=== PATIENT | male | born 1960 | race Caucasian/White ===

== ENCOUNTER 2017-06-08 11:27 | Inpatient (IN) | payer MEDICARE, MEDICAID ==
--- NOTE | 2017-06-08 11:52 | ED Physician Chart ---
ED Chief Complaint/HPI - Patient Information Date Seen:: 06/08/17 Time Seen:: 11:47 Chief Complaint:: Agitation and aggressiveness History of Present Illness:: 57 yo male was brought by ambulance from [facility] to ER for evaluation of increased agitation and aggressiveness towards staff. The patient was noticed to have stage II sacral ulcer. Allergies:: Allergies Allergy/AdvReac Type Severity Reaction Status Date / Time No Known Allergies Allergy Verified 06/08/17 11:42 Vitals:: Vital Signs - 8 hr 06/08/17 11:42 Temp 97.0 F HR 65 RR 18 BP 96/67 O2 Sat % 97 ED Review of Systems - Review of Systems General/Constitutional: No fever Skin: Skin lesions Head: No headache Eyes: No pain ENT: No sore throat Neck: No neck pain Cardio Vascular: No chest pain Pulmonary: No SOB GI: No nausea, No vomiting Musculoskeletal: No bone or joint pain Psychiatric: Prior psych history ED Past Medical History - Past Medical History Past Medical History: Seizures, Other (dysphagia, anemia) Social History: Non Smoker, No Alcohol, No Drug Use Surgical History: PEG/GTube Psychiatricy History: Schizophrenia, Other (Psychosis) Family Medical History - Family Member Mother History Unknown: Yes ED Physical Exam - Physical Examination General/Constitutional: Awake Head: Atraumatic Eyes: PERRL Skin: No ecchymosis ENMT: Nasal exam nl Neck: No nuchal rigidity Respiratory: No Wheeze/Rhonchi/Rales Cardio Vascular: RRR, No murmur, gallop, rubs, NL S1 S2 GI: No tenderness/rebounding/guarding Extremities: normal strength in all extremities Neuro/Psych: No focal deficits Other Neuro/Psych comments:: oriented to self, follows command ED Assessment - Assessment General Assessment: Psychosis Leukopenia Assessment/Comments:: CBC, CMP, UA CXR, EKG Rocephin 1g IM Ativan 1mg IM x 2 Cleared for geropsych admit ED Septic Shock - . Is Septic Shock (SBP<90, OR Lactate>4 mmol\L) present?: No - <6hrs of presentation: Vital Signs: Vital Signs - 8 hr 06/08/17 11:42 Temp 97.0 F HR 65 RR 18 BP 96/67 O2 Sat % 97 ED Reassessment (Disposition) - Reassessment Reassessment Condition:: Unchanged - Patient Disposition Discharge/Transfer:: Geropsycho w/in this hosp Admitting Medical Physician:: Michaelle Mccormack Admitting Psych Physician:: Bro Rosa ED Discharge Plan - Patient Disposition
[2017-06-08 12:21] LABS: % EOSINOPHILS 2.3 % (0.0-5.0); % MONOCYTES 7.9 % (2.0-10.0); EOSINOPHILE ABSOLUTE 0.1 Th/cmm (0.1-0.4); LYMPHOCYTE ABSOLUTE 2.1 Th/cmm (1.5-3.0); MONOCYTE ABSOLUTE 0.3 Th/cmm (0.3-1.0); NEUTROPHILE ABSOLUTE 1.4 Th/cmm (1.8-8.0)
[2017-06-08 12:28] LABS: % BASOPHILS 1.5 % (0.0-2.0); % LYMPHOCYTES 53.3 % (20.0-50.0); BASOPHILE ABSOLUTE 0.1 Th/cumm (0-0.2); HEMATOCRIT 36.6 % (41.0-60); HEMOGLOBIN 12.4 gm/dL (12-16); MEAN CELL VOLUME 94.1 fl (80-99); MEAN CORPUSCULAR HEMOGLOBIN 31.8 pg (26.0-30.0); MEAN CORPUSCULAR HGB CONC 33.8 pg (28.0-36.0); MEAN PLATELET VOLUME 7.8 fl; PLATELET COUNT 234 Th/cmm (150-400); RED BLOOD COUNT 3.89 Mil/cmm (4.30-5.70); RED CELL DISTRIBUTION WIDTH 13.2 % (11.5-20.0)
[2017-06-08 12:36] LABS: URINE MICROSCOPIC INDICATED? YES; URINE SOURCE RANDOM
[2017-06-08 12:37] LABS: URINE BILIRUBIN NEGATIVE (NEGATIVE); URINE BLOOD NEGATIVE (NEGATIVE); URINE GLUCOSE (UA) NEGATIVE (NEGATIVE); URINE KETONE NEGATIVE (NEGATIVE); URINE LEUKOCYTE ESTERASE NEGATIVE (NEGATIVE); URINE NITRATE NEGATIVE (NEGATIVE); URINE PROTEIN NEGATIVE (NEGATIVE); URINE UROBILINOGEN 0.2 E.U./dL (0.2 - 1.0)
[2017-06-08 12:37] LABS: ALB/GLOB RATIO 1.2 (1.0-1.8); ALBUMIN 3.7 gm/dL (4.2-5.5); ALKALINE PHOSPHATASE 70 U/L (34-104); ANION GAP 9.5 (7.0-16.0); BILIRUBIN,TOTAL 0.4 mg/dL (0.3-1.0); BUN - UREA NITROGEN 7 mg/dL (7-25); CALCIUM SERUM 9.3 mg/dL (8.6-10.3); CARBON DIOXIDE 29.4 mEq/L (21.0-31.0); CHLORIDE 103 mEq/L (98-107); CREATININE - SERUM 0.5 mg/dL (0.7-1.3); GFR AFRICAN-AMERICAN > 60.0 ml/min (>90); GFR NON AFRICAN-AMERICAN > 60.0 ml/min; GLUCOSE 82 mg/dL (70-105); PHENYTOIN 3.1 ug/ml (10.0-20.0); POTASSIUM SERUM 3.9 mEq/L (3.5-5.1); SGOT 27 U/L (13-39); SGPT/ALT 20 U/L (7-52); SODIUM SERUM 138 mEq/L (136-145); TOTAL PROTEIN,SERUM 6.7 gm/dL (6.0-8.3)
[2017-06-08 12:45] LABS: URINE CLARITY CLEAR (CLEAR); URINE COLOR YELLOW
[2017-06-08 12:47] LABS: URINE BACTERIA OCCASIONAL /hpf (NONE SEEN); URINE EPITHELIAL CELLS OCCASIONAL /lpf (FEW); URINE WBC 0-2 /hpf (0-5)
[2017-06-08] MEDS ORDERED: Maalox 30 mL Cup PO PRN (16:01)
[2017-06-08] MEDS ORDERED: Magnesium Hydroxide (MOM) 30 mL UDC PO PRN (16:01)
[2017-06-08 22:57] VITALS: BP 113/68
--- NOTE | 2017-06-09 07:41 | Diagnostic Imaging Report ---
Chest x-ray single view History: Shortness of breath The heart size is normal. No focal pulmonary parenchymal processes. No hilar or mediastinal abnormalities. Impression: No acute abnormalities
[2017-06-09] MEDS ORDERED: Hydrocodone/APAP 5mg/325mg Tab GT PRN (08:59)
[2017-06-09] MEDS ORDERED: Fleet Enema 135 mL RC PRN (08:59)
[2017-06-09] MEDS ORDERED: Magnesium Hydroxide (MOM) 30 mL UDC GT PRN (08:59)
[2017-06-09] MEDS ORDERED: Acetaminophen 500 MG TAB GT PRN (08:59)
[2017-06-09] MEDS: Multivitamin Tab PO SCH (12:00)
[2017-06-09] MEDS: Pantoprazole 40 mg EC Tab PO SCH (12:00)
[2017-06-09] MEDS ORDERED: Haloperidol Lactate 5 mg/mL 1mL Vial ONE (18:26)
[2017-06-09] MEDS ORDERED: Haloperidol Lactate 5 mg/mL 1mL Vial IM ONE (18:26)
[2017-06-09] MEDS: OLANZapine 5 mg Oral Disintegrating Tab GT SCH (21:54)
--- NOTE | 2017-06-10 00:20 | History & Physical ---
ADMIT DATE: 06/08/2017 HISTORY OF PRESENT ILLNESS: A 57-year-old male patient came to the Emergency Room ____ for evaluation of Geropsych problem and very aggressive behavior. The patient is known to have history of hypertension and history of sacral ulcer x 2. OBJECTIVE: GENERAL: The patient was alert, oriented. LUNGS: Clear. CARDIOVASCULAR SYSTEM: S1, S2 heard. ABDOMEN: Soft. Bowel sounds are heard. CENTRAL NERVOUS SYSTEM: Grossly normal. DIAGNOSES: Psychosis, history of hyperlipidemia, history of hypertension, has leukopenia. PLAN: The patient is being admitted and will follow along with the Geropsychiatrist. JOB# [id number]
--- NOTE | 2017-06-10 08:12 | Psychosocial Evaluation ---
DATE OF SERVICE: 06/09/2017 JUSTIFICATION FOR HOSPITALIZATION: Brought in due to agitation and violent behaviors. HISTORY OF PRESENT ILLNESS: A 57-year-old male brought in by ambulance from a correction facility increased agitation and aggressive behaviors towards staff, unruly, confused, does not know where he is, states the year is 2006, not sure about the month. Per collateral the daughter specifically recent release from [facility]. History of violence. The patient nonsensical on exam, mumbling in a Lesvia chair. PAST PSYCHIATRIC HISTORY: Details unclear, but it appears that he has been aggressive. MEDICAL: Please see full H and P. SOCIAL HISTORY: States he was born in [place], states he has been twice and has 4 kids. Unclear drugs, alcohol or tobacco. The patient is not the best historian. MENTAL STATUS EXAMINATION: Stated age, some mumbling, confused, disoriented, mumbling to self, seems to be responding. Insight and judgment diminished. Poor impulse control. PROVISIONAL DIAGNOSES: Mood unspecified psychosis, unspecified. MEDICAL: Please see full H and P. ESTIMATED LENGTH OF STAY: 5-7 days. ASSESSMENT: The patient requiring inpatient hospitalization, aggressive, agitated, combative, not safe for a lower level of care. Apparently, he does not have a place to live. CONDITIONS FOR DISCHARGE: Improved mood, improved affect, better control of his agitation. JOB# [id number]
[2017-06-10] MEDS: Multivitamin Tab PO SCH (08:37)
[2017-06-10] MEDS: Pantoprazole 40 mg EC Tab PO SCH (08:37)
[2017-06-10] MEDS: OLANZapine 5 mg Oral Disintegrating Tab GT SCH ×3 (08:37→21:23)
[2017-06-10] MEDS: Multivitamin w/ Minerals Tab GT SCH (08:38)
--- NOTE | 2017-06-10 11:49 | Internal Medicine Prog Note ---
Internal Medicine Subjective - Subjective Service Date: 06/10/17 Patient seen and examined:: with staff Patient is:: awake, verbal Per staff patient has:: tolerating meds Internal Medicine Objective - Results Result Diagrams: 06/08/17 12:12 06/08/17 12:12 Recent Labs: Laboratory Last Values WBC 4.0 Th/cmm (4.8-10.8) L 06/08/17 12:12 RBC 3.89 Mil/cmm (4.30-5.70) L 06/08/17 12:12 Hgb 12.4 gm/dL (12-16) 06/08/17 12:12 Hct 36.6 % (41.0-60) L 06/08/17 12:12 MCV 94.1 fl (80-99) 06/08/17 12:12 MCH 31.8 pg (26.0-30.0) H 06/08/17 12:12 MCHC Differential 33.8 pg (28.0-36.0) 06/08/17 12:12 RDW 13.2 % (11.5-20.0) 06/08/17 12:12 Plt Count 234 Th/cmm (150-400) 06/08/17 12:12 MPV 7.8 fl 06/08/17 12:12 Neutrophils % 35.0 % (40.0-80.0) L 06/08/17 12:12 Lymphocytes % 53.3 % (20.0-50.0) H 06/08/17 12:12 Monocytes % 7.9 % (2.0-10.0) 06/08/17 12:12 Eosinophils % 2.3 % (0.0-5.0) 06/08/17 12:12 Basophils % 1.5 % (0.0-2.0) 06/08/17 12:12 Sodium 138 mEq/L (136-145) 06/08/17 12:12 Potassium 3.9 mEq/L (3.5-5.1) 06/08/17 12:12 Chloride 103 mEq/L (98-107) 06/08/17 12:12 Carbon Dioxide 29.4 mEq/L (21.0-31.0) 06/08/17 12:12 Anion Gap 9.5 (7.0-16.0) 06/08/17 12:12 BUN 7 mg/dL (7-25) 06/08/17 12:12 Creatinine 0.5 mg/dL (0.7-1.3) L 06/08/17 12:12 Est GFR ( Amer) > 60.0 ml/min (>90) 06/08/17 12:12 Est GFR (Non-Af Amer) > 60.0 ml/min 06/08/17 12:12 BUN/Creatinine Ratio 14.0 06/08/17 12:12 Glucose 82 mg/dL (70-105) 06/08/17 12:12 Whole Bld Lactic Acid 1.02 mmol/L (0.60-1.99) 06/08/17 12:12 Calcium 9.3 mg/dL (8.6-10.3) 06/08/17 12:12 Total Bilirubin 0.4 mg/dL (0.3-1.0) 06/08/17 12:12 AST 27 U/L (13-39) 06/08/17 12:12 ALT 20 U/L (7-52) 06/08/17 12:12 Alkaline Phosphatase 70 U/L (34-104) 06/08/17 12:12 Total Protein 6.7 gm/dL (6.0-8.3) 06/08/17 12:12 Albumin 3.7 gm/dL (4.2-5.5) L 06/08/17 12:12 Globulin 3.0 gm/dL 06/08/17 12:12 Albumin/Globulin Ratio 1.2 (1.0-1.8) 06/08/17 12:12 TSH 1.35 uIU/ml (0.34-5.60) 06/08/17 12:12 Urine Source RANDOM 06/08/17 12:30 Urine Color YELLOW 06/08/17 12:30 Urine Clarity CLEAR (CLEAR) 06/08/17 12:30 Urine pH 7.0 (4.6 - 8.0) 06/08/17 12:30 Ur Specific [place] 1.010 (1.005-1.030) 06/08/17 12:30 Urine Protein NEGATIVE mg/dL (NEGATIVE) 06/08/17 12:30 Urine Glucose (UA) NEGATIVE mg/dL (NEGATIVE) 06/08/17 12:30 Urine Ketones NEGATIVE mg/dL (NEGATIVE) 06/08/17 12:30 Urine Blood NEGATIVE (NEGATIVE) 06/08/17 12:30 Urine Nitrate NEGATIVE (NEGATIVE) 06/08/17 12:30 Urine Bilirubin NEGATIVE (NEGATIVE) 06/08/17 12:30 Urine Urobilinogen 0.2 E.U./dL (0.2 - 1.0) 06/08/17 12:30 Ur Leukocyte Esterase NEGATIVE (NEGATIVE) 06/08/17 12:30 Urine WBC 0-2 /hpf (0-5) 06/08/17 12:30 Ur Epithelial Cells OCCASIONAL /lpf (FEW) 06/08/17 12:30 Urine Bacteria OCCASIONAL /hpf (NONE SEEN) 06/08/17 12:30 Phenytoin 3.1 ug/ml (10.0-20.0) L 06/08/17 12:12 Valproic Acid 48.4 ug/mL (50.0-100.0) L 06/08/17 12:12 - Physical Exam Vitals and I&O: Vital Signs Temp 97.8 F 06/10/17 06:43 Pulse 102 06/10/17 06:43 Resp 20 06/10/17 06:43 BP 108/72 06/10/17 06:43 Pulse Ox 98 06/10/17 06:43 Intake & Output 06/09/17 06/10/17 06/10/17 18:59 06:59 18:59 Intake Total 120 375 Balance 120 375 Weight (lbs) 150 lb Intake: Oral 120 Other 375 Other: # Voids 3 # Bowel Movements 1 Active Medications: Current Medications Acetaminophen (Tylenol) 650 mg PO Q4HR PRN PRN Reason: Mild Pain / Temp above 100 Stop: 08/07/17 16:00 Acetaminophen (Tylenol 650mg/20.3ml Suspension) 650 mg GT Q4HR PRN PRN Reason: Mild Pain or Fever >101 Stop: 08/08/17 08:58 Acetaminophen (Tylenol Extra Strength) 1,000 mg GT Q4H PRN PRN Reason: Pain (Moderate) Stop: 08/08/17 08:58 Acetaminophen/Hydrocodone Bitart ([place] 5mg/325mg) 1 tab GT Q4H PRN PRN Reason: Pain (Severe) Stop: 08/08/17 08:58 Al Hydrox/Mg Hydrox/Simethicone (Maalox) 30 ml PO Q4HR PRN PRN Reason: GI DISTRESS Stop: 08/07/17 16:00 Bisacodyl (Dulcolax 10 Mg Supp) 10 mg RC DAILY PRN PRN Reason: Constipation Stop: 08/08/17 08:58 Docusate Sodium (Colace) 100 mg PO BID YULISSA Stop: 08/08/17 16:59 Last Admin: 06/10/17 08:38 Dose: 100 mg Folic Acid (Folate) 1 mg GT DAILY YULISSA Stop: 08/08/17 11:59 Last Admin: 06/10/17 08:37 Dose: 1 mg Lacosamide (Vimpat) 100 mg GT BID YULISSA Stop: 08/08/17 11:59 Last Admin: 06/10/17 08:37 Dose: 100 mg Levetiracetam (Keppra) 500 mg PO BID YULISSA Stop: 08/08/17 11:59 Last Admin: 06/10/17 08:37 Dose: 500 mg Lorazepam (Ativan) 0.5 mg PO Q4HR PRN; Protocol PRN Reason: Agitation Stop: 07/08/17 16:00 Lorazepam (Ativan) 1 mg GT Q4H PRN; Protocol PRN Reason: Anxiety Stop: 08/09/17 10:16 Last Admin: 06/10/17 11:05 Dose: 1 mg Magnesium Hydroxide (Milk Of Magnesia) 30 ml PO HS PRN PRN Reason: Constipation Magnesium Hydroxide (Milk Of Magnesia) 30 ml GT DAILY PRN PRN Reason: IF COLACE INEFFECTIVE Stop: 08/08/17 08:58 Multivitamins/Vitamin C (Theragran) 1 tab PO DAILY YULISSA Stop: 08/08/17 08:59 Last Admin: 06/10/17 08:37 Dose: 1 tab Mupirocin (Bactroban Oint) 1 appl NS BID [facility] Stop: 06/14/17 17:01 Last Admin: 06/10/17 08:38 Dose: 1 appl Olanzapine (Zyprexa Zydis) 5 mg GT TID YULISSA PRN Reason: Protocol Stop: 08/08/17 08:59 Last Admin: 06/10/17 08:37 Dose: 5 mg Pantoprazole Sodium (Protonix) 40 mg PO DAILY YULISSA Stop: 08/08/17 11:59 Last Admin: 06/10/17 08:37 Dose: 40 mg Phenytoin (Dilantin) 100 mg GT TID YULISSA Stop: 08/08/17 13:59 Last Admin: 06/10/17 08:37 Dose: 100 mg Sodium Phosphate (Fleet Enema) 135 ml RC Q48H PRN PRN Reason: IF MOM INEFFECTIVE Stop: 08/08/17 08:58 Thiamine HCl (Vitamin B1) 100 mg GT DAILY YULISSA Stop: 08/08/17 11:59 Last Admin: 06/10/17 08:37 Dose: 100 mg Valproate Sodium (Depakene) 500 mg GT TID YULISSA PRN Reason: Protocol Stop: 08/08/17 08:59 Last Admin: 06/10/17 08:37 Dose: 500 mg Zolpidem Tartrate (Ambien) 5 mg PO HS PRN PRN Reason: Insomnia Stop: 08/07/17 16:00 Zolpidem Tartrate (Ambien) 10 mg GT HS PRN PRN Reason: Insomnia Stop: 08/08/17 16:59 General: alert HEENT: NC/AT, PERRLA Lungs: CTAB Cardiovascular: RRR, Normal S1, Normal S2, without murmur Neurological: alert Internal Medicine Assmt/Plan - Assessment Assessment: psychosis hyperlipidemia htn leukopenia - Plan Plan: continue current orders Nutritional Asmnt/Malnutr-PDOC - Dietary Evaluation Malnutrition Findings (Please click <Entered> for more info): Nutritional Asmnt/Malnutrition Start: 06/09/17 14: 13 Text: Status: Complete Freq: Document 06/09/17 14:13 CARLIN (Rec: 06/09/17 14:23 [email or web address]) Nutritional Asmnt/Malnutrition Patient General Information Nutritional Screening High Risk Consult Diagnosis psychosis Pertinent Medical Hx/Surgical Hx sezirue, dysphagia, anemia, PEG-Gtube, schizophrenia, psychosis Subjective Information Consult received for tube feeding. Pt seen sitting in tracy-chair at time of visit. Per RN, pt was aggresive. Pt was admited yesterday. TF not initiated yet. Current Diet Order/ Nutrition Support no diet order Pertinent Medications colace, folate, theragran, vitamin B1 Pertinent Labs 06/08 Cl 0.5, Alb 3.7 Nutritional Hx/Data Height 5 ft 8 in Height (Calculated Centimeters) 172.7 Current Weight (lbs) 150 lb Weight (Calculated Kilograms) 68.0 Weight (Calculated Grams) 45869.9 [place] Body Weight 154 % [place] Body Weight 98 Body Mass Index (BMI) 22.8 Weight Status Approriate GI Symptoms GI Symptoms None Last BM no record Difficult in: None Usual diet at home Jevisty 1.2 40ml x 20hr, total volume 800ml, provides 960kcal, 43g protein Skin Integrity/Comment: stage 2 sacral ulcer Estimated Nutritional Goals BEE in Kcals: Using Current wt Calories/Kcals/Kg 25-30 Kcals Calculated 5331-4234 Protein: Using Current wt Protein g/k-1.2 considering ulcer Protein Calculated 68-81 Fluid: ml 5115-0008 Nutritional Problem 1. Problem Problem increased nutrition needs ( calorie and protein) Etiology increased metabolic demand for wound healing Signs/Symptoms: state2 ulcer Malnutrition Alert Protein-Calorie Malnutrition N/A Is there a minimum of two criteria No selected? Query Text:Check all the applicable criteria. A minimum of two criteria are recommended for diagnosis of either severe or non-severe malnutrition. Intervention/Recommendation Comments 1. Recommend Fibersource HN bolus feeding, 250ml q4hr with 125ml water flush. This provides 1500ml total volume, 1800kcal, 81g protein and total 1965ml free water, meeting 100% of nutritional needs. 2. Recommend nutrition supplement Arginaid 1pk daily via G-tube to help wound healing. 3. Monitor TF tolerance, wt weekly, skin integrity and labs 1. F/U as high risk in 2-3 days, 06/11-06/12 Expected Outcomes/Goals Expected Outcomes/Goals 1. Pt to meet at least 75% of nutritional needs via nutrition support with tolerance 2. Wt stability, skin integrity to improve, labs to approach WNL.
--- NOTE | 2017-06-11 06:45 | Progress Notes ---
DATE: 06/10/2017 SUBJECTIVE: The patient in the hospital, brought in due to agitation, still remains agitated, combative in a Lesvia chair fighting with staff. History of violence. Staff concerned given his unruly and out of control behaviors. The patient is confused, disoriented, making nonsensical statements. MEDICATIONS: Reviewed. ASSESSMENT: The patient remains symptomatic, agitated. PLAN: We will increase the dosing of p.r.n. Ativan. We will continue to titrate and adjust medications. Given his unruly out of control behaviors he is not safe for discharge. JOB# [id number]
[2017-06-11] MEDS: OLANZapine 5 mg Oral Disintegrating Tab GT SCH ×2 (09:45→17:58)
[2017-06-11] MEDS: Pantoprazole 40 mg EC Tab PO SCH (09:45)
[2017-06-11] MEDS: Multivitamin w/ Minerals Tab GT SCH (09:45)
[2017-06-11] MEDS: Multivitamin Tab PO SCH (09:52)
[2017-06-11] MEDS: OLANZapine 10 mg Oral Disintegrating Tab PO SCH (21:40)
[2017-06-12] MEDS: Multivitamin Tab PO SCH (08:49)
[2017-06-12] MEDS: OLANZapine 5 mg Oral Disintegrating Tab GT SCH ×2 (08:50→18:00)
[2017-06-12] MEDS: Multivitamin w/ Minerals Tab GT SCH (08:52)
[2017-06-12] MEDS: Pantoprazole 40 mg EC Tab PO SCH (09:40)
--- NOTE | 2017-06-12 16:20 | General Progress Note ---
Subjective - Review of Systems Events since last encounter: awake verbal in no distress Objective - Results Result Diagrams: 06/08/17 12:12 06/08/17 12:12 Recent Labs: Laboratory Last Values WBC 4.0 Th/cmm (4.8-10.8) L 06/08/17 12:12 RBC 3.89 Mil/cmm (4.30-5.70) L 06/08/17 12:12 Hgb 12.4 gm/dL (12-16) 06/08/17 12:12 Hct 36.6 % (41.0-60) L 06/08/17 12:12 MCV 94.1 fl (80-99) 06/08/17 12:12 MCH 31.8 pg (26.0-30.0) H 06/08/17 12:12 MCHC Differential 33.8 pg (28.0-36.0) 06/08/17 12:12 RDW 13.2 % (11.5-20.0) 06/08/17 12:12 Plt Count 234 Th/cmm (150-400) 06/08/17 12:12 MPV 7.8 fl 06/08/17 12:12 Neutrophils % 35.0 % (40.0-80.0) L 06/08/17 12:12 Lymphocytes % 53.3 % (20.0-50.0) H 06/08/17 12:12 Monocytes % 7.9 % (2.0-10.0) 06/08/17 12:12 Eosinophils % 2.3 % (0.0-5.0) 06/08/17 12:12 Basophils % 1.5 % (0.0-2.0) 06/08/17 12:12 Sodium 138 mEq/L (136-145) 06/08/17 12:12 Potassium 3.9 mEq/L (3.5-5.1) 06/08/17 12:12 Chloride 103 mEq/L (98-107) 06/08/17 12:12 Carbon Dioxide 29.4 mEq/L (21.0-31.0) 06/08/17 12:12 Anion Gap 9.5 (7.0-16.0) 06/08/17 12:12 BUN 7 mg/dL (7-25) 06/08/17 12:12 Creatinine 0.5 mg/dL (0.7-1.3) L 06/08/17 12:12 Est GFR ( Amer) > 60.0 ml/min (>90) 06/08/17 12:12 Est GFR (Non-Af Amer) > 60.0 ml/min 06/08/17 12:12 BUN/Creatinine Ratio 14.0 06/08/17 12:12 Glucose 82 mg/dL (70-105) 06/08/17 12:12 Whole Bld Lactic Acid 1.02 mmol/L (0.60-1.99) 06/08/17 12:12 Calcium 9.3 mg/dL (8.6-10.3) 06/08/17 12:12 Total Bilirubin 0.4 mg/dL (0.3-1.0) 06/08/17 12:12 AST 27 U/L (13-39) 06/08/17 12:12 ALT 20 U/L (7-52) 06/08/17 12:12 Alkaline Phosphatase 70 U/L (34-104) 06/08/17 12:12 Total Protein 6.7 gm/dL (6.0-8.3) 06/08/17 12:12 Albumin 3.7 gm/dL (4.2-5.5) L 06/08/17 12:12 Globulin 3.0 gm/dL 06/08/17 12:12 Albumin/Globulin Ratio 1.2 (1.0-1.8) 06/08/17 12:12 TSH 1.35 uIU/ml (0.34-5.60) 06/08/17 12:12 Urine Source RANDOM 06/08/17 12:30 Urine Color YELLOW 06/08/17 12:30 Urine Clarity CLEAR (CLEAR) 06/08/17 12:30 Urine pH 7.0 (4.6 - 8.0) 06/08/17 12:30 Ur Specific [place] 1.010 (1.005-1.030) 06/08/17 12:30 Urine Protein NEGATIVE mg/dL (NEGATIVE) 06/08/17 12:30 Urine Glucose (UA) NEGATIVE mg/dL (NEGATIVE) 06/08/17 12:30 Urine Ketones NEGATIVE mg/dL (NEGATIVE) 06/08/17 12:30 Urine Blood NEGATIVE (NEGATIVE) 06/08/17 12:30 Urine Nitrate NEGATIVE (NEGATIVE) 06/08/17 12:30 Urine Bilirubin NEGATIVE (NEGATIVE) 06/08/17 12:30 Urine Urobilinogen 0.2 E.U./dL (0.2 - 1.0) 06/08/17 12:30 Ur Leukocyte Esterase NEGATIVE (NEGATIVE) 06/08/17 12:30 Urine WBC 0-2 /hpf (0-5) 06/08/17 12:30 Ur Epithelial Cells OCCASIONAL /lpf (FEW) 06/08/17 12:30 Urine Bacteria OCCASIONAL /hpf (NONE SEEN) 06/08/17 12:30 Phenytoin 3.1 ug/ml (10.0-20.0) L 06/08/17 12:12 Valproic Acid 48.4 ug/mL (50.0-100.0) L 06/08/17 12:12 - Physical Exam Vitals and I&O: Vital Signs Temp 98.2 F 06/12/17 06:58 Pulse 69 06/12/17 06:58 Resp 19 06/12/17 06:58 BP 130/77 06/12/17 06:58 Pulse Ox 98 06/12/17 06:58 Intake & Output 06/11/17 06/12/17 06/12/17 18:59 06:59 18:59 Other: # Voids 3 3 Active Medications: Current Medications Acetaminophen (Tylenol) 650 mg PO Q4HR PRN PRN Reason: Mild Pain / Temp above 100 Stop: 08/07/17 16:00 Last Admin: 06/10/17 19:49 Dose: 650 mg Acetaminophen (Tylenol 650mg/20.3ml Suspension) 650 mg GT Q4HR PRN PRN Reason: Mild Pain or Fever >101 Stop: 08/08/17 08:58 Acetaminophen (Tylenol Extra Strength) 1,000 mg GT Q4H PRN PRN Reason: Pain (Moderate) Stop: 08/08/17 08:58 Acetaminophen/Hydrocodone Bitart ([place] 5mg/325mg) 1 tab GT Q4H PRN PRN Reason: Pain (Severe) Stop: 08/08/17 08:58 Al Hydrox/Mg Hydrox/Simethicone (Maalox) 30 ml PO Q4HR PRN PRN Reason: GI DISTRESS Stop: 08/07/17 16:00 Bisacodyl (Dulcolax 10 Mg Supp) 10 mg RC DAILY PRN PRN Reason: Constipation Stop: 08/08/17 08:58 Clonazepam (Klonopin) 1 mg GT BID YULISSA PRN Reason: Protocol Stop: 08/10/17 08:59 Last Admin: 06/12/17 08:50 Dose: 1 mg Docusate Sodium (Colace) 100 mg PO BID YULISSA Stop: 08/08/17 16:59 Last Admin: 06/12/17 08:52 Dose: 100 mg Folic Acid (Folate) 1 mg GT DAILY YULISSA Stop: 08/08/17 11:59 Last Admin: 06/12/17 08:48 Dose: 1 mg Lacosamide (Vimpat) 100 mg GT BID YULISSA Stop: 08/08/17 11:59 Last Admin: 06/12/17 08:48 Dose: 100 mg Levetiracetam (Keppra) 500 mg PO BID YULISSA Stop: 08/08/17 11:59 Last Admin: 06/12/17 08:48 Dose: 500 mg Lorazepam (Ativan) 0.5 mg PO Q4HR PRN; Protocol PRN Reason: Agitation Stop: 07/08/17 16:00 Lorazepam (Ativan) 1 mg GT Q4H PRN; Protocol PRN Reason: Anxiety Stop: 08/09/17 10:16 Last Admin: 06/12/17 14:54 Dose: 1 mg Magnesium Hydroxide (Milk Of Magnesia) 30 ml PO HS PRN PRN Reason: Constipation Magnesium Hydroxide (Milk Of Magnesia) 30 ml GT DAILY PRN PRN Reason: IF COLACE INEFFECTIVE Stop: 08/08/17 08:58 Multivitamins/Vitamin C (Theragran) 1 tab PO DAILY YULISSA Stop: 08/08/17 08:59 Last Admin: 06/12/17 08:49 Dose: 1 tab Mupirocin (Bactroban Oint) 1 appl NS BID YULISSA Stop: 06/14/17 17:01 Last Admin: 06/12/17 08:53 Dose: 1 appl Olanzapine (Zyprexa Zydis) 5 mg GT BID YULISSA PRN Reason: Protocol Stop: 08/10/17 08:59 Last Admin: 06/12/17 08:50 Dose: 5 mg Olanzapine (Zyprexa Zydis) 10 mg PO HS YULISSA PRN Reason: Protocol Stop: 08/10/17 20:59 Last Admin: 06/11/17 21:40 Dose: 10 mg Pantoprazole Sodium (Protonix) 40 mg PO DAILY YULISSA Stop: 08/08/17 11:59 Last Admin: 06/12/17 09:40 Dose: 40 mg Phenytoin (Dilantin) 100 mg GT TID YULISSA Stop: 08/08/17 13:59 Last Admin: 06/12/17 14:54 Dose: 100 mg Sodium Phosphate (Fleet Enema) 135 ml RC Q48H PRN PRN Reason: IF MOM INEFFECTIVE Stop: 08/08/17 08:58 Thiamine HCl (Vitamin B1) 100 mg GT DAILY YULISSA Stop: 08/08/17 11:59 Last Admin: 06/12/17 08:50 Dose: 100 mg Valproate Sodium (Depakene) 500 mg GT TID YULISSA PRN Reason: Protocol Stop: 08/08/17 08:59 Last Admin: 06/12/17 14:54 Dose: 500 mg Zolpidem Tartrate (Ambien) 5 mg PO HS PRN PRN Reason: Insomnia Stop: 08/07/17 16:00 Zolpidem Tartrate (Ambien) 10 mg GT HS PRN PRN Reason: Insomnia Stop: 08/08/17 16:59 Last Admin: 06/10/17 21:25 Dose: 10 mg Nutritional Asmnt/Malnutr-PDOC - Dietary Evaluation Malnutrition Findings (Please click <Entered> for more info): Nutritional Asmnt/Malnutrition Start: 06/09/17 14: 13 Text: Status: Complete Freq: Document 06/09/17 14:13 MARCE (Rec: 06/09/17 14:23 [facility]-[email or web address]) Nutritional Asmnt/Malnutrition Patient General Information Nutritional Screening High Risk Consult Diagnosis psychosis Pertinent Medical Hx/Surgical Hx sezirue, dysphagia, anemia, PEG-Gtube, schizophrenia, psychosis Subjective Information Consult received for tube feeding. Pt seen sitting in tracy-chair at time of visit. Per RN, pt was aggresive. Pt was admited yesterday. TF not initiated yet. Current Diet Order/ Nutrition Support no diet order Pertinent Medications colace, folate, theragran, vitamin B1 Pertinent Labs 06/08 Cl 0.5, Alb 3.7 Nutritional Hx/Data Height 1.73 m Height (Calculated Centimeters) 172.7 Current Weight (lbs) 68.039 kg Weight (Calculated Kilograms) 68.0 Weight (Calculated Grams) 20871.9 [place] Body Weight 154 % [place] Body Weight 98 Body Mass Index (BMI) 22.8 Weight Status Approriate GI Symptoms GI Symptoms None Last BM no record Difficult in: None Usual diet at home Jevisty 1.2 40ml x 20hr, total volume 800ml, provides 960kcal, 43g protein Skin Integrity/Comment: stage 2 sacral ulcer Estimated Nutritional Goals BEE in Kcals: Using Current wt Calories/Kcals/Kg 25-30 Kcals Calculated 6730-1280 Protein: Using Current wt Protein g/k-1.2 considering ulcer Protein Calculated 68-81 Fluid: ml 2567-8748 Nutritional Problem 1. Problem Problem increased nutrition needs ( calorie and protein) Etiology increased metabolic demand for wound healing Signs/Symptoms: state2 ulcer Malnutrition Alert Protein-Calorie Malnutrition N/A Is there a minimum of two criteria No selected? Query Text:Check all the applicable criteria. A minimum of two criteria are recommended for diagnosis of either severe or non-severe malnutrition. Intervention/Recommendation Comments 1. Recommend Fibersource HN bolus feeding, 250ml q4hr with 125ml water flush. This provides 1500ml total volume, 1800kcal, 81g protein and total 1965ml free water, meeting 100% of nutritional needs. 2. Recommend nutrition supplement Arginaid 1pk daily via G-tube to help wound healing. 3. Monitor TF tolerance, wt weekly, skin integrity and labs 1. F/U as high risk in 2-3 days, 06/11-06/12 Expected Outcomes/Goals Expected Outcomes/Goals 1. Pt to meet at least 75% of nutritional needs via nutrition support with tolerance 2. Wt stability, skin integrity to improve, labs to approach WNL.
--- NOTE | 2017-06-12 17:01 | Progress Notes ---
DATE: 06/11/2017 SUBJECTIVE: Chart reviewed. The patient interviewed. Also, discussed the patient's condition with the staff and reviewed records and labs. The patient is still confused and easily agitated. The patient also is still restless. The patient also is trying to pull the G-tube and he had to get Ativan in order to calm him down. Also, is still restless and angry and had difficulty following staff directions and staff have difficulty of redirecting him. Otherwise, the patient is compliant with taking medications with no side effect of medications. ASSESSMENT: The patient is still restless and agitated and still can be dangerous to others. TREATMENT PLAN: Continue to monitor his behavior and his condition closely. Also, continue to work on adjusting psychotropic medications. We will increase Zyprexa to 5 mg twice a day and 10 mg at bedtime. Also, we will add Klonopin 1 mg twice a day. Discussed with human services case managerloss prevention/safety district manager issue and it seems that [facility] will not take him back and he will need placement. JOB# [id number]
[2017-06-12] MEDS: OLANZapine 10 mg Oral Disintegrating Tab PO SCH (20:50)
--- NOTE | 2017-06-13 08:34 | Progress Notes ---
DATE: 06/12/2017 SUBJECTIVE: Chart reviewed and the patient interviewed. Also discussed the patient's condition with the staff and reviewed records and labs. The patient is still anxious, but he seems to be less irritable and less agitated. The patient is also still withdrawn and interacting minimally with others. He also is compliant with taking his medications. Personal hygiene is still fluctuating from fair to poor. Otherwise, no side effect of medications. ASSESSMENT: The patient is still psychotic and agitated. TREATMENT PLAN: Continue monitoring his behavior and his condition closely. Also, continue to work on his agitation as well as his depression and continue to follow up. JOB# [id number]
--- NOTE | 2017-06-13 08:44 | Progress Notes ---
DATE: 06/13/2017 SUBJECTIVE: Chart reviewed and the patient interviewed. Also discussed the patient's condition with the staff and reviewed records and labs. The patient is still in a depressed mood. The patient also is interacting minimally with others. He also wants to be left alone most of the time. He still has episodes of agitation, but it seems to be less than before. Also, he is still have tries to be interacting, but most of the time he is left alone. ASSESSMENT: The patient is still depressed and seems to be still psychotic. TREATMENT PLAN: We will continue monitoring his behavior and his condition closely. Also, continue current psychotropic medications. Also, continue to work on his isolation and his ineffective coping. [facility]# [id number]
[2017-06-13] MEDS: Multivitamin w/ Minerals Tab GT SCH (08:49)
[2017-06-13] MEDS: Multivitamin Tab PO SCH (08:50)
[2017-06-13] MEDS: Pantoprazole 40 mg EC Tab PO SCH (08:50)
[2017-06-13] MEDS: OLANZapine 5 mg Oral Disintegrating Tab GT SCH ×2 (08:50→17:59)
--- NOTE | 2017-06-13 12:47 | Internal Medicine Prog Note ---
Internal Medicine Subjective - Subjective Service Date: 06/13/17 Patient is:: awake, verbal Per staff patient has:: tolerating meds Internal Medicine Objective - Results Result Diagrams: 06/08/17 12:12 06/08/17 12:12 Recent Labs: Laboratory Last Values WBC 4.0 Th/cmm (4.8-10.8) L 06/08/17 12:12 RBC 3.89 Mil/cmm (4.30-5.70) L 06/08/17 12:12 Hgb 12.4 gm/dL (12-16) 06/08/17 12:12 Hct 36.6 % (41.0-60) L 06/08/17 12:12 MCV 94.1 fl (80-99) 06/08/17 12:12 MCH 31.8 pg (26.0-30.0) H 06/08/17 12:12 MCHC Differential 33.8 pg (28.0-36.0) 06/08/17 12:12 RDW 13.2 % (11.5-20.0) 06/08/17 12:12 Plt Count 234 Th/cmm (150-400) 06/08/17 12:12 MPV 7.8 fl 06/08/17 12:12 Neutrophils % 35.0 % (40.0-80.0) L 06/08/17 12:12 Lymphocytes % 53.3 % (20.0-50.0) H 06/08/17 12:12 Monocytes % 7.9 % (2.0-10.0) 06/08/17 12:12 Eosinophils % 2.3 % (0.0-5.0) 06/08/17 12:12 Basophils % 1.5 % (0.0-2.0) 06/08/17 12:12 Sodium 138 mEq/L (136-145) 06/08/17 12:12 Potassium 3.9 mEq/L (3.5-5.1) 06/08/17 12:12 Chloride 103 mEq/L (98-107) 06/08/17 12:12 Carbon Dioxide 29.4 mEq/L (21.0-31.0) 06/08/17 12:12 Anion Gap 9.5 (7.0-16.0) 06/08/17 12:12 BUN 7 mg/dL (7-25) 06/08/17 12:12 Creatinine 0.5 mg/dL (0.7-1.3) L 06/08/17 12:12 Est GFR ( Amer) > 60.0 ml/min (>90) 06/08/17 12:12 Est GFR (Non-Af Amer) > 60.0 ml/min 06/08/17 12:12 BUN/Creatinine Ratio 14.0 06/08/17 12:12 Glucose 82 mg/dL (70-105) 06/08/17 12:12 Whole Bld Lactic Acid 1.02 mmol/L (0.60-1.99) 06/08/17 12:12 Calcium 9.3 mg/dL (8.6-10.3) 06/08/17 12:12 Total Bilirubin 0.4 mg/dL (0.3-1.0) 06/08/17 12:12 AST 27 U/L (13-39) 06/08/17 12:12 ALT 20 U/L (7-52) 06/08/17 12:12 Alkaline Phosphatase 70 U/L (34-104) 06/08/17 12:12 Total Protein 6.7 gm/dL (6.0-8.3) 06/08/17 12:12 Albumin 3.7 gm/dL (4.2-5.5) L 06/08/17 12:12 Globulin 3.0 gm/dL 06/08/17 12:12 Albumin/Globulin Ratio 1.2 (1.0-1.8) 06/08/17 12:12 TSH 1.35 uIU/ml (0.34-5.60) 06/08/17 12:12 Urine Source RANDOM 06/08/17 12:30 Urine Color YELLOW 06/08/17 12:30 Urine Clarity CLEAR (CLEAR) 06/08/17 12:30 Urine pH 7.0 (4.6 - 8.0) 06/08/17 12:30 Ur Specific [place] 1.010 (1.005-1.030) 06/08/17 12:30 Urine Protein NEGATIVE mg/dL (NEGATIVE) 06/08/17 12:30 Urine Glucose (UA) NEGATIVE mg/dL (NEGATIVE) 06/08/17 12:30 Urine Ketones NEGATIVE mg/dL (NEGATIVE) 06/08/17 12:30 Urine Blood NEGATIVE (NEGATIVE) 06/08/17 12:30 Urine Nitrate NEGATIVE (NEGATIVE) 06/08/17 12:30 Urine Bilirubin NEGATIVE (NEGATIVE) 06/08/17 12:30 Urine Urobilinogen 0.2 E.U./dL (0.2 - 1.0) 06/08/17 12:30 Ur Leukocyte Esterase NEGATIVE (NEGATIVE) 06/08/17 12:30 Urine WBC 0-2 /hpf (0-5) 06/08/17 12:30 Ur Epithelial Cells OCCASIONAL /lpf (FEW) 06/08/17 12:30 Urine Bacteria OCCASIONAL /hpf (NONE SEEN) 06/08/17 12:30 Phenytoin 3.1 ug/ml (10.0-20.0) L 06/08/17 12:12 Valproic Acid 48.4 ug/mL (50.0-100.0) L 06/08/17 12:12 - Physical Exam Vitals and I&O: Vital Signs Temp 97.2 F 06/13/17 06:23 Pulse 86 06/13/17 06:23 Resp 20 06/13/17 06:23 BP 126/79 06/13/17 06:23 Pulse Ox 98 06/13/17 06:23 Intake & Output 06/12/17 06/13/17 06/13/17 18:59 06:59 18:59 Other: # Voids 2 3 Active Medications: Current Medications Acetaminophen (Tylenol) 650 mg PO Q4HR PRN PRN Reason: Mild Pain / Temp above 100 Stop: 08/07/17 16:00 Last Admin: 06/10/17 19:49 Dose: 650 mg Acetaminophen (Tylenol 650mg/20.3ml Suspension) 650 mg GT Q4HR PRN PRN Reason: Mild Pain or Fever >101 Stop: 08/08/17 08:58 Acetaminophen (Tylenol Extra Strength) 1,000 mg GT Q4H PRN PRN Reason: Pain (Moderate) Stop: 08/08/17 08:58 Acetaminophen/Hydrocodone Bitart ([place] 5mg/325mg) 1 tab GT Q4H PRN PRN Reason: Pain (Severe) Stop: 08/08/17 08:58 Al Hydrox/Mg Hydrox/Simethicone (Maalox) 30 ml PO Q4HR PRN PRN Reason: GI DISTRESS Stop: 08/07/17 16:00 Bisacodyl (Dulcolax 10 Mg Supp) 10 mg RC DAILY PRN PRN Reason: Constipation Stop: 08/08/17 08:58 Clonazepam (Klonopin) 1 mg GT BID YULISSA PRN Reason: Protocol Stop: 08/10/17 08:59 Last Admin: 06/13/17 08:49 Dose: 1 mg Docusate Sodium (Colace) 100 mg PO BID YULISSA Stop: 08/08/17 16:59 Last Admin: 06/13/17 08:49 Dose: 100 mg Folic Acid (Folate) 1 mg GT DAILY YULISSA Stop: 08/08/17 11:59 Last Admin: 06/13/17 08:49 Dose: 1 mg Lacosamide (Vimpat) 100 mg GT BID YULISSA Stop: 08/08/17 11:59 Last Admin: 06/13/17 08:49 Dose: 100 mg Levetiracetam (Keppra) 500 mg PO BID [facility] Stop: 08/08/17 11:59 Last Admin: 06/12/17 17:59 Dose: 500 mg Lorazepam (Ativan) 0.5 mg PO Q4HR PRN; Protocol PRN Reason: Agitation Stop: 07/08/17 16:00 Last Admin: 06/13/17 08:50 Dose: 0.5 mg Lorazepam (Ativan) 1 mg GT Q4H PRN; Protocol PRN Reason: Anxiety Stop: 08/09/17 10:16 Last Admin: 06/12/17 14:54 Dose: 1 mg Magnesium Hydroxide (Milk Of Magnesia) 30 ml PO HS PRN PRN Reason: Constipation Magnesium Hydroxide (Milk Of Magnesia) 30 ml GT DAILY PRN PRN Reason: IF COLACE INEFFECTIVE Stop: 08/08/17 08:58 Multivitamins/Vitamin C (Theragran) 1 tab PO DAILY YULISSA Stop: 08/08/17 08:59 Last Admin: 06/13/17 08:50 Dose: 1 tab Mupirocin (Bactroban Oint) 1 appl NS BID [facility] Stop: 06/14/17 17:01 Last Admin: 06/13/17 08:50 Dose: 1 appl Olanzapine (Zyprexa Zydis) 5 mg GT BID YULISSA PRN Reason: Protocol Stop: 08/10/17 08:59 Last Admin: 06/13/17 08:50 Dose: 5 mg Olanzapine (Zyprexa Zydis) 10 mg PO HS YULISSA PRN Reason: Protocol Stop: 08/10/17 20:59 Last Admin: 06/12/17 20:50 Dose: 10 mg Pantoprazole Sodium (Protonix) 40 mg PO DAILY YULISSA Stop: 08/08/17 11:59 Last Admin: 06/13/17 08:50 Dose: 40 mg Phenytoin (Dilantin) 100 mg GT TID YULISSA Stop: 08/08/17 13:59 Last Admin: 06/13/17 08:50 Dose: 100 mg Sodium Phosphate (Fleet Enema) 135 ml RC Q48H PRN PRN Reason: IF MOM INEFFECTIVE Stop: 08/08/17 08:58 Thiamine HCl (Vitamin B1) 100 mg GT DAILY YULISSA Stop: 08/08/17 11:59 Last Admin: 06/13/17 08:50 Dose: 100 mg Valproate Sodium (Depakene) 500 mg GT TID YULISSA PRN Reason: Protocol Stop: 08/08/17 08:59 Last Admin: 06/13/17 08:49 Dose: 500 mg Zolpidem Tartrate (Ambien) 5 mg PO HS PRN PRN Reason: Insomnia Stop: 08/07/17 16:00 Last Admin: 06/12/17 21:00 Dose: 5 mg Zolpidem Tartrate (Ambien) 10 mg GT HS PRN PRN Reason: Insomnia Stop: 08/08/17 16:59 Last Admin: 06/10/17 21:25 Dose: 10 mg General: alert HEENT: NC/AT, PERRLA Lungs: CTAB Cardiovascular: RRR, Normal S1, Normal S2, without murmur Neurological: alert Internal Medicine Assmt/Plan - Assessment Assessment: psychosis hyperlipidemia htn leukopenia - Plan Plan: continue current orders Nutritional Asmnt/Malnutr-PDOC - Dietary Evaluation Malnutrition Findings (Please click <Entered> for more info): Nutritional Asmnt/Malnutrition Start: 06/09/17 14: 13 Text: Status: Complete Freq: Document 06/09/17 14:13 CARLIN (Rec: 06/09/17 14:23 MARCE [email or web address]) Nutritional Asmnt/Malnutrition Patient General Information Nutritional Screening High Risk Consult Diagnosis psychosis Pertinent Medical Hx/Surgical Hx sezirue, dysphagia, anemia, PEG-Gtube, schizophrenia, psychosis Subjective Information Consult received for tube feeding. Pt seen sitting in tracy-chair at time of visit. Per RN, pt was aggresive. Pt was admited yesterday. TF not initiated yet. Current Diet Order/ Nutrition Support no diet order Pertinent Medications colace, folate, theragran, vitamin B1 Pertinent Labs 06/08 Cl 0.5, Alb 3.7 Nutritional Hx/Data Height 5 ft 8 in Height (Calculated Centimeters) 172.7 Current Weight (lbs) 150 lb Weight (Calculated Kilograms) 68.0 Weight (Calculated Grams) 78366.9 [place] Body Weight 154 % [place] Body Weight 98 Body Mass Index (BMI) 22.8 Weight Status Approriate GI Symptoms GI Symptoms None Last BM no record Difficult in: None Usual diet at home Jevisty 1.2 40ml x 20hr, total volume 800ml, provides 960kcal, 43g protein Skin Integrity/Comment: stage 2 sacral ulcer Estimated Nutritional Goals BEE in Kcals: Using Current wt Calories/Kcals/Kg 25-30 Kcals Calculated 0850-9941 Protein: Using Current wt Protein g/k-1.2 considering ulcer Protein Calculated 68-81 Fluid: ml 1657-9165 Nutritional Problem 1. Problem Problem increased nutrition needs ( calorie and protein) Etiology increased metabolic demand for wound healing Signs/Symptoms: state2 ulcer Malnutrition Alert Protein-Calorie Malnutrition N/A Is there a minimum of two criteria No selected? Query Text:Check all the applicable criteria. A minimum of two criteria are recommended for diagnosis of either severe or non-severe malnutrition. Intervention/Recommendation Comments 1. Recommend Fibersource HN bolus feeding, 250ml q4hr with 125ml water flush. This provides 1500ml total volume, 1800kcal, 81g protein and total 1965ml free water, meeting 100% of nutritional needs. 2. Recommend nutrition supplement Arginaid 1pk daily via G-tube to help wound healing. 3. Monitor TF tolerance, wt weekly, skin integrity and labs 1. F/U as high risk in 2-3 days, 06/11-06/12 Expected Outcomes/Goals Expected Outcomes/Goals 1. Pt to meet at least 75% of nutritional needs via nutrition support with tolerance 2. Wt stability, skin integrity to improve, labs to approach WNL.
[2017-06-13] MEDS: OLANZapine 10 mg Oral Disintegrating Tab PO SCH (21:53)
[2017-06-14] MEDS: Pantoprazole 40 mg EC Tab PO SCH (09:20)
[2017-06-14] MEDS: OLANZapine 5 mg Oral Disintegrating Tab GT SCH ×2 (09:21→17:09)
[2017-06-14] MEDS: Multivitamin Tab PO SCH (09:21)
[2017-06-14] MEDS: Multivitamin w/ Minerals Tab GT SCH (09:22)
--- NOTE | 2017-06-14 20:35 | Progress Notes ---
DATE: 06/14/2017 SUBJECTIVE: The patient was seen in his room, lying in the bed. The patient is a poor historian. Otherwise, the patient appears awake, episodes of agitation. The patient is in no acute distress. OBJECTIVE: VITAL SIGNS: Temperature 97.2, heart rate 68, blood pressure 116/69, respirations 20, and 99% on room air. HEENT: Head is atraumatic and normocephalic. Eyes: Bilateral conjunctivae are clear. Bilateral pupils are equally round and reactive. NECK: Supple. No JVD. CARDIOVASCULAR: S1 and S2, without murmur. PULMONARY: Clear to auscultation. GASTROINTESTINAL: Soft and nontender without guarding. Positive bowel sounds. MUSCULOSKELETAL: No clubbing. No cyanosis noted. ASSESSMENT: 1. Psychosis. 2. Hypertension. 3. Hyperlipidemia. PLAN: We will give the patient inpatient Psychiatric Unit. We will follow up with a psychiatrist to monitor the patient's condition and behavior. Treatment plans were discussed with the patient's nurse. Treatment plans were discussed with Dr. Mccormack. JOB# [id number]
[2017-06-14] MEDS: OLANZapine 10 mg Oral Disintegrating Tab PO SCH (21:04)
[2017-06-15] MEDS: Pantoprazole 40 mg EC Tab PO SCH (09:46)
[2017-06-15] MEDS: Multivitamin w/ Minerals Tab GT SCH (09:46)
[2017-06-15] MEDS: Multivitamin Tab PO SCH (09:46)
[2017-06-15] MEDS: OLANZapine 5 mg Oral Disintegrating Tab GT SCH ×2 (09:47→16:42)
--- NOTE | 2017-06-15 13:39 | Internal Medicine Prog Note ---
Internal Medicine Subjective - Subjective Service Date: 06/15/17 Patient seen and examined:: with staff Patient is:: awake, verbal Per staff patient has:: tolerating meds Internal Medicine Objective - Results Result Diagrams: 06/08/17 12:12 06/08/17 12:12 Recent Labs: Laboratory Last Values WBC 4.0 Th/cmm (4.8-10.8) L 06/08/17 12:12 RBC 3.89 Mil/cmm (4.30-5.70) L 06/08/17 12:12 Hgb 12.4 gm/dL (12-16) 06/08/17 12:12 Hct 36.6 % (41.0-60) L 06/08/17 12:12 MCV 94.1 fl (80-99) 06/08/17 12:12 MCH 31.8 pg (26.0-30.0) H 06/08/17 12:12 MCHC Differential 33.8 pg (28.0-36.0) 06/08/17 12:12 RDW 13.2 % (11.5-20.0) 06/08/17 12:12 Plt Count 234 Th/cmm (150-400) 06/08/17 12:12 MPV 7.8 fl 06/08/17 12:12 Neutrophils % 35.0 % (40.0-80.0) L 06/08/17 12:12 Lymphocytes % 53.3 % (20.0-50.0) H 06/08/17 12:12 Monocytes % 7.9 % (2.0-10.0) 06/08/17 12:12 Eosinophils % 2.3 % (0.0-5.0) 06/08/17 12:12 Basophils % 1.5 % (0.0-2.0) 06/08/17 12:12 Sodium 138 mEq/L (136-145) 06/08/17 12:12 Potassium 3.9 mEq/L (3.5-5.1) 06/08/17 12:12 Chloride 103 mEq/L (98-107) 06/08/17 12:12 Carbon Dioxide 29.4 mEq/L (21.0-31.0) 06/08/17 12:12 Anion Gap 9.5 (7.0-16.0) 06/08/17 12:12 BUN 7 mg/dL (7-25) 06/08/17 12:12 Creatinine 0.5 mg/dL (0.7-1.3) L 06/08/17 12:12 Est GFR ( Amer) > 60.0 ml/min (>90) 06/08/17 12:12 Est GFR (Non-Af Amer) > 60.0 ml/min 06/08/17 12:12 BUN/Creatinine Ratio 14.0 06/08/17 12:12 Glucose 82 mg/dL (70-105) 06/08/17 12:12 Whole Bld Lactic Acid 1.02 mmol/L (0.60-1.99) 06/08/17 12:12 Calcium 9.3 mg/dL (8.6-10.3) 06/08/17 12:12 Total Bilirubin 0.4 mg/dL (0.3-1.0) 06/08/17 12:12 AST 27 U/L (13-39) 06/08/17 12:12 ALT 20 U/L (7-52) 06/08/17 12:12 Alkaline Phosphatase 70 U/L (34-104) 06/08/17 12:12 Total Protein 6.7 gm/dL (6.0-8.3) 06/08/17 12:12 Albumin 3.7 gm/dL (4.2-5.5) L 06/08/17 12:12 Globulin 3.0 gm/dL 06/08/17 12:12 Albumin/Globulin Ratio 1.2 (1.0-1.8) 06/08/17 12:12 TSH 1.35 uIU/ml (0.34-5.60) 06/08/17 12:12 Urine Source RANDOM 06/08/17 12:30 Urine Color YELLOW 06/08/17 12:30 Urine Clarity CLEAR (CLEAR) 06/08/17 12:30 Urine pH 7.0 (4.6 - 8.0) 06/08/17 12:30 Ur Specific [place] 1.010 (1.005-1.030) 06/08/17 12:30 Urine Protein NEGATIVE mg/dL (NEGATIVE) 06/08/17 12:30 Urine Glucose (UA) NEGATIVE mg/dL (NEGATIVE) 06/08/17 12:30 Urine Ketones NEGATIVE mg/dL (NEGATIVE) 06/08/17 12:30 Urine Blood NEGATIVE (NEGATIVE) 06/08/17 12:30 Urine Nitrate NEGATIVE (NEGATIVE) 06/08/17 12:30 Urine Bilirubin NEGATIVE (NEGATIVE) 06/08/17 12:30 Urine Urobilinogen 0.2 E.U./dL (0.2 - 1.0) 06/08/17 12:30 Ur Leukocyte Esterase NEGATIVE (NEGATIVE) 06/08/17 12:30 Urine WBC 0-2 /hpf (0-5) 06/08/17 12:30 Ur Epithelial Cells OCCASIONAL /lpf (FEW) 06/08/17 12:30 Urine Bacteria OCCASIONAL /hpf (NONE SEEN) 06/08/17 12:30 Phenytoin 3.1 ug/ml (10.0-20.0) L 06/08/17 12:12 Valproic Acid 48.4 ug/mL (50.0-100.0) L 06/08/17 12:12 - Physical Exam Vitals and I&O: Vital Signs Temp 97.9 F 06/14/17 20:52 Pulse 94 06/14/17 20:52 Resp 18 06/14/17 20:52 BP 104/59 06/14/17 20:52 Pulse Ox 97 06/14/17 20:52 Intake & Output 06/14/17 06/15/17 06/15/17 18:59 06:59 18:59 Intake Total 360 0 Output Total 2 Balance 360 0 -2 Intake: Oral 360 0 Output: Urine 2 Other: # Voids 3 1 # Bowel Movements 1 1 Active Medications: Current Medications Acetaminophen (Tylenol) 650 mg PO Q4HR PRN PRN Reason: Mild Pain / Temp above 100 Stop: 08/07/17 16:00 Last Admin: 06/10/17 19:49 Dose: 650 mg Acetaminophen (Tylenol 650mg/20.3ml Suspension) 650 mg GT Q4HR PRN PRN Reason: Mild Pain or Fever >101 Stop: 08/08/17 08:58 Acetaminophen (Tylenol Extra Strength) 1,000 mg GT Q4H PRN PRN Reason: Pain (Moderate) Stop: 08/08/17 08:58 Last Admin: 06/15/17 01:47 Dose: 1,000 mg Acetaminophen/Hydrocodone Bitart ([place] 5mg/325mg) 1 tab GT Q4H PRN PRN Reason: Pain (Severe) Stop: 08/08/17 08:58 Al Hydrox/Mg Hydrox/Simethicone (Maalox) 30 ml PO Q4HR PRN PRN Reason: GI DISTRESS Stop: 08/07/17 16:00 Bisacodyl (Dulcolax 10 Mg Supp) 10 mg RC DAILY PRN PRN Reason: Constipation Stop: 08/08/17 08:58 Clonazepam (Klonopin) 1 mg GT BID YULISSA PRN Reason: Protocol Stop: 08/10/17 08:59 Last Admin: 06/15/17 09:47 Dose: 1 mg Docusate Sodium (Colace) 100 mg PO BID [facility] Stop: 08/08/17 16:59 Last Admin: 06/15/17 09:46 Dose: 100 mg Folic Acid (Folate) 1 mg GT DAILY [facility] Stop: 08/08/17 11:59 Last Admin: 06/15/17 09:47 Dose: 1 mg Lacosamide (Vimpat) 100 mg GT BID [facility] Stop: 08/08/17 11:59 Last Admin: 06/15/17 09:46 Dose: 100 mg Levetiracetam (Keppra) 500 mg PO BID [facility] Stop: 08/08/17 11:59 Last Admin: 06/15/17 09:46 Dose: 500 mg Lorazepam (Ativan) 0.5 mg PO Q4HR PRN; Protocol PRN Reason: Agitation Stop: 07/08/17 16:00 Last Admin: 06/13/17 21:59 Dose: 0.5 mg Lorazepam (Ativan) 1 mg GT Q4H PRN; Protocol PRN Reason: Anxiety Stop: 08/09/17 10:16 Last Admin: 06/15/17 01:46 Dose: 1 mg Magnesium Hydroxide (Milk Of Magnesia) 30 ml PO HS PRN PRN Reason: Constipation Magnesium Hydroxide (Milk Of Magnesia) 30 ml GT DAILY PRN PRN Reason: IF COLACE INEFFECTIVE Stop: 08/08/17 08:58 Multivitamins/Vitamin C (Theragran) 1 tab PO DAILY YULISSA Stop: 08/08/17 08:59 Last Admin: 06/15/17 09:46 Dose: 1 tab Olanzapine (Zyprexa Zydis) 5 mg GT BID YULISSA PRN Reason: Protocol Stop: 08/10/17 08:59 Last Admin: 06/15/17 09:47 Dose: 5 mg Olanzapine (Zyprexa Zydis) 10 mg PO HS YULISSA PRN Reason: Protocol Stop: 08/10/17 20:59 Last Admin: 06/14/17 21:04 Dose: 10 mg Pantoprazole Sodium (Protonix) 40 mg PO DAILY YULISSA Stop: 08/08/17 11:59 Last Admin: 06/15/17 09:46 Dose: 40 mg Phenytoin (Dilantin) 100 mg GT TID YULISSA Stop: 08/08/17 13:59 Last Admin: 06/15/17 09:47 Dose: 100 mg Sodium Phosphate (Fleet Enema) 135 ml RC Q48H PRN PRN Reason: IF MOM INEFFECTIVE Stop: 08/08/17 08:58 Thiamine HCl (Vitamin B1) 100 mg GT DAILY YULISSA Stop: 08/08/17 11:59 Last Admin: 06/15/17 09:46 Dose: 100 mg Valproate Sodium (Depakene) 500 mg GT TID YULISSA PRN Reason: Protocol Stop: 08/08/17 08:59 Last Admin: 06/15/17 09:49 Dose: 500 mg Zolpidem Tartrate (Ambien) 5 mg PO HS PRN PRN Reason: Insomnia Stop: 08/07/17 16:00 Last Admin: 06/12/17 21:00 Dose: 5 mg Zolpidem Tartrate (Ambien) 10 mg GT HS PRN PRN Reason: Insomnia Stop: 08/08/17 16:59 Last Admin: 06/14/17 21:04 Dose: 10 mg General: alert HEENT: NC/AT, PERRLA Lungs: CTAB Cardiovascular: RRR, Normal S1, Normal S2, without murmur Neurological: alert Internal Medicine Assmt/Plan - Assessment Assessment: psychosis hyperlipidemia htn leukopenia - Plan Plan: continue current orders Nutritional Asmnt/Malnutr-PDOC - Dietary Evaluation Malnutrition Findings (Please click <Entered> for more info): Nutritional Asmnt/Malnutrition Start: 06/09/17 14: 13 Text: Status: Complete Freq: Document 06/09/17 14:13 CARLIN (Rec: 06/09/17 14:23 CARLIN [email or web address]) Nutritional Asmnt/Malnutrition Patient General Information Nutritional Screening High Risk Consult Diagnosis psychosis Pertinent Medical Hx/Surgical Hx sezirue, dysphagia, anemia, PEG-Gtube, schizophrenia, psychosis Subjective Information Consult received for tube feeding. Pt seen sitting in tracy-chair at time of visit. Per RN, pt was aggresive. Pt was admited yesterday. TF not initiated yet. Current Diet Order/ Nutrition Support no diet order Pertinent Medications colace, folate, theragran, vitamin B1 Pertinent Labs 06/08 Cl 0.5, Alb 3.7 Nutritional Hx/Data Height 5 ft 8 in Height (Calculated Centimeters) 172.7 Current Weight (lbs) 150 lb Weight (Calculated Kilograms) 68.0 Weight (Calculated Grams) 48587.9 [place] Body Weight 154 % [place] Body Weight 98 Body Mass Index (BMI) 22.8 Weight Status Approriate GI Symptoms GI Symptoms None Last BM no record Difficult in: None Usual diet at home Jevisty 1.2 40ml x 20hr, total volume 800ml, provides 960kcal, 43g protein Skin Integrity/Comment: stage 2 sacral ulcer Estimated Nutritional Goals BEE in Kcals: Using Current wt Calories/Kcals/Kg 25-30 Kcals Calculated 1218-5848 Protein: Using Current wt Protein g/k-1.2 considering ulcer Protein Calculated 68-81 Fluid: ml 9583-6524 Nutritional Problem 1. Problem Problem increased nutrition needs ( calorie and protein) Etiology increased metabolic demand for wound healing Signs/Symptoms: state2 ulcer Malnutrition Alert Protein-Calorie Malnutrition N/A Is there a minimum of two criteria No selected? Query Text:Check all the applicable criteria. A minimum of two criteria are recommended for diagnosis of either severe or non-severe malnutrition. Intervention/Recommendation Comments 1. Recommend Fibersource HN bolus feeding, 250ml q4hr with 125ml water flush. This provides 1500ml total volume, 1800kcal, 81g protein and total 1965ml free water, meeting 100% of nutritional needs. 2. Recommend nutrition supplement Arginaid 1pk daily via G-tube to help wound healing. 3. Monitor TF tolerance, wt weekly, skin integrity and labs 1. F/U as high risk in 2-3 days, 06/11-06/12 Expected Outcomes/Goals Expected Outcomes/Goals 1. Pt to meet at least 75% of nutritional needs via nutrition support with tolerance 2. Wt stability, skin integrity to improve, labs to approach WNL.
--- NOTE | 2017-06-15 19:37 | Progress Notes ---
DATE: SUBJECTIVE: The patient was seen, chart reviewed, and discussed with staff. The patient continues to be extremely confused, very poor insight, very anxious, currently resting comfortably in a Lesvia chair. According to the staff, the patient often becomes confused and tries to walk despite being a fall risk. He has, however, been compliant with his medications and following rules and directions with some redirections. PLAN: The patient continues to be unpredictable, disoriented, and confused so that he will require inpatient care center for treatment. We will monitor patient on a daily basis for response to medications and titrate medications as needed. JOB# [id number]
[2017-06-15] MEDS: OLANZapine 10 mg Oral Disintegrating Tab PO SCH (21:33)
--- NOTE | 2017-06-15 22:15 | Progress Notes ---
DATE: SUBJECTIVE: The patient seen, chart reviewed, and discussed with staff. The patient continues to be very anxious, somewhat irritable, generally self isolative, and very aloof. He has, however, been compliant with his medications. PLAN: The patient continues to be actively confused, unable to make a safer realistic discharge. It was felt that he will require continued inpatient care for stabilization and treatment. We will monitor patient on a daily basis for his response to medications and titrate as needed. [facility]# [id number]
--- NOTE | 2017-06-16 09:17 | General Progress Note ---
Subjective - Review of Systems Events since last encounter: no distress awake alert Objective - Results Result Diagrams: 06/08/17 12:12 06/08/17 12:12 Recent Labs: Laboratory Last Values WBC 4.0 Th/cmm (4.8-10.8) L 06/08/17 12:12 RBC 3.89 Mil/cmm (4.30-5.70) L 06/08/17 12:12 Hgb 12.4 gm/dL (12-16) 06/08/17 12:12 Hct 36.6 % (41.0-60) L 06/08/17 12:12 MCV 94.1 fl (80-99) 06/08/17 12:12 MCH 31.8 pg (26.0-30.0) H 06/08/17 12:12 MCHC Differential 33.8 pg (28.0-36.0) 06/08/17 12:12 RDW 13.2 % (11.5-20.0) 06/08/17 12:12 Plt Count 234 Th/cmm (150-400) 06/08/17 12:12 MPV 7.8 fl 06/08/17 12:12 Neutrophils % 35.0 % (40.0-80.0) L 06/08/17 12:12 Lymphocytes % 53.3 % (20.0-50.0) H 06/08/17 12:12 Monocytes % 7.9 % (2.0-10.0) 06/08/17 12:12 Eosinophils % 2.3 % (0.0-5.0) 06/08/17 12:12 Basophils % 1.5 % (0.0-2.0) 06/08/17 12:12 Sodium 138 mEq/L (136-145) 06/08/17 12:12 Potassium 3.9 mEq/L (3.5-5.1) 06/08/17 12:12 Chloride 103 mEq/L (98-107) 06/08/17 12:12 Carbon Dioxide 29.4 mEq/L (21.0-31.0) 06/08/17 12:12 Anion Gap 9.5 (7.0-16.0) 06/08/17 12:12 BUN 7 mg/dL (7-25) 06/08/17 12:12 Creatinine 0.5 mg/dL (0.7-1.3) L 06/08/17 12:12 Est GFR ( Amer) > 60.0 ml/min (>90) 06/08/17 12:12 Est GFR (Non-Af Amer) > 60.0 ml/min 06/08/17 12:12 BUN/Creatinine Ratio 14.0 06/08/17 12:12 Glucose 82 mg/dL (70-105) 06/08/17 12:12 Whole Bld Lactic Acid 1.02 mmol/L (0.60-1.99) 06/08/17 12:12 Calcium 9.3 mg/dL (8.6-10.3) 06/08/17 12:12 Total Bilirubin 0.4 mg/dL (0.3-1.0) 06/08/17 12:12 AST 27 U/L (13-39) 06/08/17 12:12 ALT 20 U/L (7-52) 06/08/17 12:12 Alkaline Phosphatase 70 U/L (34-104) 06/08/17 12:12 Total Protein 6.7 gm/dL (6.0-8.3) 06/08/17 12:12 Albumin 3.7 gm/dL (4.2-5.5) L 06/08/17 12:12 Globulin 3.0 gm/dL 06/08/17 12:12 Albumin/Globulin Ratio 1.2 (1.0-1.8) 06/08/17 12:12 TSH 1.35 uIU/ml (0.34-5.60) 06/08/17 12:12 Urine Source RANDOM 06/08/17 12:30 Urine Color YELLOW 06/08/17 12:30 Urine Clarity CLEAR (CLEAR) 06/08/17 12:30 Urine pH 7.0 (4.6 - 8.0) 06/08/17 12:30 Ur Specific [place] 1.010 (1.005-1.030) 06/08/17 12:30 Urine Protein NEGATIVE mg/dL (NEGATIVE) 06/08/17 12:30 Urine Glucose (UA) NEGATIVE mg/dL (NEGATIVE) 06/08/17 12:30 Urine Ketones NEGATIVE mg/dL (NEGATIVE) 06/08/17 12:30 Urine Blood NEGATIVE (NEGATIVE) 06/08/17 12:30 Urine Nitrate NEGATIVE (NEGATIVE) 06/08/17 12:30 Urine Bilirubin NEGATIVE (NEGATIVE) 06/08/17 12:30 Urine Urobilinogen 0.2 E.U./dL (0.2 - 1.0) 06/08/17 12:30 Ur Leukocyte Esterase NEGATIVE (NEGATIVE) 06/08/17 12:30 Urine WBC 0-2 /hpf (0-5) 06/08/17 12:30 Ur Epithelial Cells OCCASIONAL /lpf (FEW) 06/08/17 12:30 Urine Bacteria OCCASIONAL /hpf (NONE SEEN) 06/08/17 12:30 Phenytoin 3.1 ug/ml (10.0-20.0) L 06/08/17 12:12 Valproic Acid 48.4 ug/mL (50.0-100.0) L 06/08/17 12:12 - Physical Exam Vitals and I&O: Vital Signs Temp 97.9 F 06/15/17 16:12 Pulse 92 06/15/17 16:12 Resp 20 06/15/17 16:12 BP 139/94 06/15/17 16:12 Pulse Ox 96 06/15/17 16:12 Intake & Output 06/15/17 06/16/17 06/16/17 18:59 06:59 18:59 Output Total 2 Balance -2 Output: Urine 2 Other: # Voids 3 # Bowel Movements 1 Active Medications: Current Medications Acetaminophen (Tylenol) 650 mg PO Q4HR PRN PRN Reason: Mild Pain / Temp above 100 Stop: 08/07/17 16:00 Last Admin: 06/10/17 19:49 Dose: 650 mg Acetaminophen (Tylenol 650mg/20.3ml Suspension) 650 mg GT Q4HR PRN PRN Reason: Mild Pain or Fever >101 Stop: 08/08/17 08:58 Acetaminophen (Tylenol Extra Strength) 1,000 mg GT Q4H PRN PRN Reason: Pain (Moderate) Stop: 08/08/17 08:58 Last Admin: 06/15/17 01:47 Dose: 1,000 mg Acetaminophen/Hydrocodone Bitart ([place] 5mg/325mg) 1 tab GT Q4H PRN PRN Reason: Pain (Severe) Stop: 08/08/17 08:58 Al Hydrox/Mg Hydrox/Simethicone (Maalox) 30 ml PO Q4HR PRN PRN Reason: GI DISTRESS Stop: 08/07/17 16:00 Bisacodyl (Dulcolax 10 Mg Supp) 10 mg RC DAILY PRN PRN Reason: Constipation Stop: 08/08/17 08:58 Clonazepam (Klonopin) 1 mg GT BID YULISSA PRN Reason: Protocol Stop: 08/10/17 08:59 Last Admin: 06/15/17 16:42 Dose: 1 mg Docusate Sodium (Colace) 100 mg PO BID YULISSA Stop: 08/08/17 16:59 Last Admin: 06/15/17 16:42 Dose: 100 mg Folic Acid (Folate) 1 mg GT DAILY YULISSA Stop: 08/08/17 11:59 Last Admin: 06/15/17 09:47 Dose: 1 mg Lacosamide (Vimpat) 100 mg GT BID [facility] Stop: 08/08/17 11:59 Last Admin: 06/15/17 16:42 Dose: 100 mg Levetiracetam (Keppra) 500 mg PO BID [facility] Stop: 08/08/17 11:59 Last Admin: 06/15/17 16:42 Dose: 500 mg Lorazepam (Ativan) 0.5 mg PO Q4HR PRN; Protocol PRN Reason: Agitation Stop: 07/08/17 16:00 Last Admin: 06/13/17 21:59 Dose: 0.5 mg Lorazepam (Ativan) 1 mg GT Q4H PRN; Protocol PRN Reason: Anxiety Stop: 08/09/17 10:16 Last Admin: 06/15/17 01:46 Dose: 1 mg Magnesium Hydroxide (Milk Of Magnesia) 30 ml PO HS PRN PRN Reason: Constipation Magnesium Hydroxide (Milk Of Magnesia) 30 ml GT DAILY PRN PRN Reason: IF COLACE INEFFECTIVE Stop: 08/08/17 08:58 Multivitamins/Vitamin C (Theragran) 1 tab PO DAILY YULISSA Stop: 08/08/17 08:59 Last Admin: 06/15/17 09:46 Dose: 1 tab Olanzapine (Zyprexa Zydis) 10 mg PO HS YULISSA PRN Reason: Protocol Stop: 08/10/17 20:59 Last Admin: 06/15/17 21:33 Dose: 10 mg Olanzapine (Zyprexa Zydis) 10 mg GT BID YULISSA PRN Reason: Protocol Stop: 08/15/17 06:33 Pantoprazole Sodium (Protonix) 40 mg PO DAILY YULISSA Stop: 08/08/17 11:59 Last Admin: 06/15/17 09:46 Dose: 40 mg Phenytoin (Dilantin) 100 mg GT TID YULISSA Stop: 08/08/17 13:59 Last Admin: 06/15/17 21:33 Dose: 100 mg Sodium Phosphate (Fleet Enema) 135 ml RC Q48H PRN PRN Reason: IF MOM INEFFECTIVE Stop: 08/08/17 08:58 Thiamine HCl (Vitamin B1) 100 mg GT DAILY YULISSA Stop: 08/08/17 11:59 Last Admin: 06/15/17 09:46 Dose: 100 mg Valproate Sodium (Depakene) 500 mg GT TID YULISSA PRN Reason: Protocol Stop: 08/08/17 08:59 Last Admin: 06/15/17 21:34 Dose: 500 mg Zolpidem Tartrate (Ambien) 5 mg PO HS PRN PRN Reason: Insomnia Stop: 08/07/17 16:00 Last Admin: 06/12/17 21:00 Dose: 5 mg Zolpidem Tartrate (Ambien) 10 mg GT HS PRN PRN Reason: Insomnia Stop: 08/08/17 16:59 Last Admin: 06/15/17 21:36 Dose: 10 mg Nutritional Asmnt/Malnutr-PDOC - Dietary Evaluation Malnutrition Findings (Please click <Entered> for more info): Nutritional Asmnt/Malnutrition Start: 06/09/17 14: 13 Text: Status: Complete Freq: Document 06/09/17 14:13 HENNY (Rec: 06/09/17 14:23 HENNY [email or web address]) Nutritional Asmnt/Malnutrition Patient General Information Nutritional Screening High Risk Consult Diagnosis psychosis Pertinent Medical Hx/Surgical Hx sezirue, dysphagia, anemia, PEG-Gtube, schizophrenia, psychosis Subjective Information Consult received for tube feeding. Pt seen sitting in tracy-chair at time of visit. Per RN, pt was aggresive. Pt was admited yesterday. TF not initiated yet. Current Diet Order/ Nutrition Support no diet order Pertinent Medications colace, folate, theragran, vitamin B1 Pertinent Labs 06/08 Cl 0.5, Alb 3.7 Nutritional Hx/Data Height 1.73 m Height (Calculated Centimeters) 172.7 Current Weight (lbs) 68.039 kg Weight (Calculated Kilograms) 68.0 Weight (Calculated Grams) 94379.9 [place] Body Weight 154 % [place] Body Weight 98 Body Mass Index (BMI) 22.8 Weight Status Approriate GI Symptoms GI Symptoms None Last BM no record Difficult in: None Usual diet at home Jevisty 1.2 40ml x 20hr, total volume 800ml, provides 960kcal, 43g protein Skin Integrity/Comment: stage 2 sacral ulcer Estimated Nutritional Goals BEE in Kcals: Using Current wt Calories/Kcals/Kg 25-30 Kcals Calculated 6884-2971 Protein: Using Current wt Protein g/k-1.2 considering ulcer Protein Calculated 68-81 Fluid: ml 3756-4091 Nutritional Problem 1. Problem Problem increased nutrition needs ( calorie and protein) Etiology increased metabolic demand for wound healing Signs/Symptoms: state2 ulcer Malnutrition Alert Protein-Calorie Malnutrition N/A Is there a minimum of two criteria No selected? Query Text:Check all the applicable criteria. A minimum of two criteria are recommended for diagnosis of either severe or non-severe malnutrition. Intervention/Recommendation Comments 1. Recommend Fibersource HN bolus feeding, 250ml q4hr with 125ml water flush. This provides 1500ml total volume, 1800kcal, 81g protein and total 1965ml free water, meeting 100% of nutritional needs. 2. Recommend nutrition supplement Arginaid 1pk daily via G-tube to help wound healing. 3. Monitor TF tolerance, wt weekly, skin integrity and labs 1. F/U as high risk in 2-3 days, 06/11-06/12 Expected Outcomes/Goals Expected Outcomes/Goals 1. Pt to meet at least 75% of nutritional needs via nutrition support with tolerance 2. Wt stability, skin integrity to improve, labs to approach WNL.
[2017-06-16] MEDS: Pantoprazole 40 mg EC Tab PO SCH (10:08)
[2017-06-16] MEDS: Multivitamin Tab PO SCH (10:08)
[2017-06-16] MEDS: OLANZapine 5 mg Oral Disintegrating Tab GT SCH ×2 (10:09→18:44)
[2017-06-16] MEDS: Multivitamin w/ Minerals Tab GT SCH (10:10)
[2017-06-16] MEDS: OLANZapine 10 mg Oral Disintegrating Tab PO SCH (21:00)
--- NOTE | 2017-06-17 06:39 | Progress Notes ---
DATE: SUBJECTIVE: Chart reviewed and the patient interviewed. I also discussed the patient's condition with the staff and reviewed records and labs. The patient continued to be aggressive and confused. He is trying to pull G-tube. The patient also is pointing out and trying to reach to imaginary objects. Increased agitation during helping him with his ADLs. Otherwise, the patient is compliant with taking medications with no side effects of medications. ASSESSMENT: The patient is still agitated and psychotic. TREATMENT PLAN: We will increase Zyprexa to 10 mg twice a day and 10 mg at bedtime. Also, continue Depakote 500 mg 3 times a day. Depakote blood level that was done on 06/08/2017 was 48.4. We will get another Depakote blood level today and we will continue to work on irritability and agitation and continue to follow up closely. JOB# [id number]
--- NOTE | 2017-06-17 06:53 | Discharge Summary ---
DATE OF DISCHARGE: 06/17/2017 DATE OF DISCHARGE: 06/17/2017. AGE: 57. SEX: Male. PHYSICIAN: Dr. Rosa. FINAL DIAGNOSES: PRIMARY DIAGNOSES: Unspecified psychosis: Unspecified mood disorder with psychosis. REASON FOR HOSPITALIZATION: The patient was admitted to the hospital because of increased agitation and irritability and aggressive behavior with the staff. HOSPITAL COURSE: The patient continued to be agitated and in irritable mood. Also, continued to be aggressive. The patient was given Klonopin 1 mg twice a day as well as patient was given Zyprexa and the dose adjusted to 10 mg at bedtime and 10 mg twice during the day. Gradually, the patient's affect was brighter. The Depakote was monitored closely and the dose adjusted to 500 mg 3 times a day. The patient's affect was brighter. The patient was less irritable and less agitated. He also easier to follow directions. Depakote blood level that was done on 06/16/2017 came back to be 56.3 which is within therapeutic level. The rest of blood work was basically within normal. AFTER-DISCHARGE PLANS: The patient discharged from the hospital, return to live in [facility] with plans to follow him up there. EXPECTED OUTCOME AFTER DISCHARGE: Fair if the patient continues to take psychotropic medications and followup was discharged plans. JOB# [id number]
[2017-06-17] MEDS: Multivitamin w/ Minerals Tab GT SCH (08:51)
[2017-06-17] MEDS: Multivitamin Tab PO SCH (08:51)
[2017-06-17] MEDS: Pantoprazole 40 mg EC Tab PO SCH (08:52)
[2017-06-17] MEDS: OLANZapine 5 mg Oral Disintegrating Tab GT SCH ×2 (08:52→17:08)
[2017-06-17] MEDS: OLANZapine 10 mg Oral Disintegrating Tab PO SCH (20:24)
[2017-06-18] MEDS: Multivitamin Tab PO SCH (08:19)
[2017-06-18] MEDS: Pantoprazole 40 mg EC Tab PO SCH (08:19)
[2017-06-18] MEDS: Multivitamin w/ Minerals Tab GT SCH (08:19)
[2017-06-18] MEDS: OLANZapine 5 mg Oral Disintegrating Tab GT SCH ×2 (08:56→17:24)
--- NOTE | 2017-06-18 13:54 | Internal Medicine Prog Note ---
Internal Medicine Subjective - Subjective Service Date: 06/18/17 Patient is:: awake, verbal Per staff patient has:: tolerating meds Internal Medicine Objective - Results Result Diagrams: 06/08/17 12:12 06/08/17 12:12 Recent Labs: Laboratory Last Values WBC 4.0 Th/cmm (4.8-10.8) L 06/08/17 12:12 RBC 3.89 Mil/cmm (4.30-5.70) L 06/08/17 12:12 Hgb 12.4 gm/dL (12-16) 06/08/17 12:12 Hct 36.6 % (41.0-60) L 06/08/17 12:12 MCV 94.1 fl (80-99) 06/08/17 12:12 MCH 31.8 pg (26.0-30.0) H 06/08/17 12:12 MCHC Differential 33.8 pg (28.0-36.0) 06/08/17 12:12 RDW 13.2 % (11.5-20.0) 06/08/17 12:12 Plt Count 234 Th/cmm (150-400) 06/08/17 12:12 MPV 7.8 fl 06/08/17 12:12 Neutrophils % 35.0 % (40.0-80.0) L 06/08/17 12:12 Lymphocytes % 53.3 % (20.0-50.0) H 06/08/17 12:12 Monocytes % 7.9 % (2.0-10.0) 06/08/17 12:12 Eosinophils % 2.3 % (0.0-5.0) 06/08/17 12:12 Basophils % 1.5 % (0.0-2.0) 06/08/17 12:12 Sodium 138 mEq/L (136-145) 06/08/17 12:12 Potassium 3.9 mEq/L (3.5-5.1) 06/08/17 12:12 Chloride 103 mEq/L (98-107) 06/08/17 12:12 Carbon Dioxide 29.4 mEq/L (21.0-31.0) 06/08/17 12:12 Anion Gap 9.5 (7.0-16.0) 06/08/17 12:12 BUN 7 mg/dL (7-25) 06/08/17 12:12 Creatinine 0.5 mg/dL (0.7-1.3) L 06/08/17 12:12 Est GFR ( Amer) > 60.0 ml/min (>90) 06/08/17 12:12 Est GFR (Non-Af Amer) > 60.0 ml/min 06/08/17 12:12 BUN/Creatinine Ratio 14.0 06/08/17 12:12 Glucose 82 mg/dL (70-105) 06/08/17 12:12 Whole Bld Lactic Acid 1.02 mmol/L (0.60-1.99) 06/08/17 12:12 Calcium 9.3 mg/dL (8.6-10.3) 06/08/17 12:12 Total Bilirubin 0.4 mg/dL (0.3-1.0) 06/08/17 12:12 AST 27 U/L (13-39) 06/08/17 12:12 ALT 20 U/L (7-52) 06/08/17 12:12 Alkaline Phosphatase 70 U/L (34-104) 06/08/17 12:12 Total Protein 6.7 gm/dL (6.0-8.3) 06/08/17 12:12 Albumin 3.7 gm/dL (4.2-5.5) L 06/08/17 12:12 Globulin 3.0 gm/dL 06/08/17 12:12 Albumin/Globulin Ratio 1.2 (1.0-1.8) 06/08/17 12:12 TSH 1.35 uIU/ml (0.34-5.60) 06/08/17 12:12 Urine Source RANDOM 06/08/17 12:30 Urine Color YELLOW 06/08/17 12:30 Urine Clarity CLEAR (CLEAR) 06/08/17 12:30 Urine pH 7.0 (4.6 - 8.0) 06/08/17 12:30 Ur Specific [place] 1.010 (1.005-1.030) 06/08/17 12:30 Urine Protein NEGATIVE mg/dL (NEGATIVE) 06/08/17 12:30 Urine Glucose (UA) NEGATIVE mg/dL (NEGATIVE) 06/08/17 12:30 Urine Ketones NEGATIVE mg/dL (NEGATIVE) 06/08/17 12:30 Urine Blood NEGATIVE (NEGATIVE) 06/08/17 12:30 Urine Nitrate NEGATIVE (NEGATIVE) 06/08/17 12:30 Urine Bilirubin NEGATIVE (NEGATIVE) 06/08/17 12:30 Urine Urobilinogen 0.2 E.U./dL (0.2 - 1.0) 06/08/17 12:30 Ur Leukocyte Esterase NEGATIVE (NEGATIVE) 06/08/17 12:30 Urine WBC 0-2 /hpf (0-5) 06/08/17 12:30 Ur Epithelial Cells OCCASIONAL /lpf (FEW) 06/08/17 12:30 Urine Bacteria OCCASIONAL /hpf (NONE SEEN) 06/08/17 12:30 Phenytoin 3.1 ug/ml (10.0-20.0) L 06/08/17 12:12 Valproic Acid 56.3 ug/mL (50.0-100.0) 06/16/17 15:52 - Physical Exam Vitals and I&O: Vital Signs Temp 97.0 F 06/18/17 07:31 Pulse 84 06/18/17 07:31 Resp 19 06/18/17 07:31 BP 128/85 06/18/17 07:31 Pulse Ox 97 06/18/17 07:31 Intake & Output 06/17/17 06/18/17 06/18/17 18:59 06:59 18:59 Intake Total 60 Balance 60 Intake: Oral 60 Other: # Voids 4 2 # Bowel Movements 0 1 Stool Characteristics Soft Formed Active Medications: Current Medications Acetaminophen (Tylenol) 650 mg PO Q4HR PRN PRN Reason: Mild Pain / Temp above 100 Stop: 08/07/17 16:00 Last Admin: 06/10/17 19:49 Dose: 650 mg Acetaminophen (Tylenol 650mg/20.3ml Suspension) 650 mg GT Q4HR PRN PRN Reason: Mild Pain or Fever >101 Stop: 08/08/17 08:58 Acetaminophen (Tylenol Extra Strength) 1,000 mg GT Q4H PRN PRN Reason: Pain (Moderate) Stop: 08/08/17 08:58 Last Admin: 06/15/17 01:47 Dose: 1,000 mg Acetaminophen/Hydrocodone Bitart ([place] 5mg/325mg) 1 tab GT Q4H PRN PRN Reason: Pain (Severe) Stop: 08/08/17 08:58 Al Hydrox/Mg Hydrox/Simethicone (Maalox) 30 ml PO Q4HR PRN PRN Reason: GI DISTRESS Stop: 08/07/17 16:00 Bisacodyl (Dulcolax 10 Mg Supp) 10 mg RC DAILY PRN PRN Reason: Constipation Stop: 08/08/17 08:58 Clonazepam (Klonopin) 1 mg GT BID YULISSA PRN Reason: Protocol Stop: 08/10/17 08:59 Last Admin: 06/18/17 08:18 Dose: 1 mg Docusate Sodium (Colace) 100 mg PO BID YULISSA Stop: 08/08/17 16:59 Last Admin: 06/18/17 08:18 Dose: 100 mg Folic Acid (Folate) 1 mg GT DAILY [facility] Stop: 08/08/17 11:59 Last Admin: 06/18/17 08:18 Dose: 1 mg Lacosamide (Vimpat) 100 mg GT BID YULISSA Stop: 08/08/17 11:59 Last Admin: 06/18/17 08:19 Dose: 100 mg Levetiracetam (Keppra) 500 mg PO BID [facility] Stop: 08/08/17 11:59 Last Admin: 06/18/17 08:20 Dose: 500 mg Lorazepam (Ativan) 0.5 mg PO Q4HR PRN; Protocol PRN Reason: Agitation Stop: 07/08/17 16:00 Last Admin: 06/18/17 08:19 Dose: 0.5 mg Lorazepam (Ativan) 1 mg GT Q4H PRN; Protocol PRN Reason: Anxiety Stop: 08/09/17 10:16 Last Admin: 06/16/17 20:59 Dose: 1 mg Magnesium Hydroxide (Milk Of Magnesia) 30 ml PO HS PRN PRN Reason: Constipation Magnesium Hydroxide (Milk Of Magnesia) 30 ml GT DAILY PRN PRN Reason: IF COLACE INEFFECTIVE Stop: 08/08/17 08:58 Multivitamins/Vitamin C (Theragran) 1 tab PO DAILY YULISSA Stop: 08/08/17 08:59 Last Admin: 06/18/17 08:19 Dose: 1 tab Olanzapine (Zyprexa Zydis) 10 mg PO HS YULISSA PRN Reason: Protocol Stop: 08/10/17 20:59 Last Admin: 06/17/17 20:24 Dose: 10 mg Olanzapine (Zyprexa Zydis) 10 mg GT BID YULISSA PRN Reason: Protocol Stop: 08/15/17 06:33 Last Admin: 06/18/17 08:56 Dose: 10 mg Pantoprazole Sodium (Protonix) 40 mg PO DAILY YULISSA Stop: 08/08/17 11:59 Last Admin: 06/18/17 08:19 Dose: 40 mg Phenytoin (Dilantin) 100 mg GT TID YULISSA Stop: 08/08/17 13:59 Last Admin: 06/18/17 08:19 Dose: 100 mg Sodium Phosphate (Fleet Enema) 135 ml RC Q48H PRN PRN Reason: IF MOM INEFFECTIVE Stop: 08/08/17 08:58 Thiamine HCl (Vitamin B1) 100 mg GT DAILY YULISSA Stop: 08/08/17 11:59 Last Admin: 06/18/17 08:20 Dose: 100 mg Valproate Sodium (Depakene) 500 mg GT TID YULISSA PRN Reason: Protocol Stop: 08/08/17 08:59 Last Admin: 06/18/17 08:18 Dose: 500 mg Zolpidem Tartrate (Ambien) 5 mg PO HS PRN PRN Reason: Insomnia Stop: 08/07/17 16:00 Last Admin: 06/12/17 21:00 Dose: 5 mg Zolpidem Tartrate (Ambien) 10 mg GT HS PRN PRN Reason: Insomnia Stop: 08/08/17 16:59 Last Admin: 06/16/17 20:59 Dose: 10 mg General: alert HEENT: NC/AT, PERRLA Lungs: CTAB Cardiovascular: RRR, Normal S1, Normal S2, without murmur Neurological: alert Internal Medicine Assmt/Plan - Assessment Assessment: psychosis hyperlipidemia htn leukopenia - Plan Plan: continue current orders Nutritional Asmnt/Malnutr-PDOC - Dietary Evaluation Malnutrition Findings (Please click <Entered> for more info): Nutritional Asmnt/Malnutrition Start: 06/09/17 14: 13 Text: Status: Complete Freq: Document 06/09/17 14:13 CARLIN (Rec: 06/09/17 14:23 HENNY [email or web address]) Nutritional Asmnt/Malnutrition Patient General Information Nutritional Screening High Risk Consult Diagnosis psychosis Pertinent Medical Hx/Surgical Hx sezirue, dysphagia, anemia, PEG-Gtube, schizophrenia, psychosis Subjective Information Consult received for tube feeding. Pt seen sitting in tracy-chair at time of visit. Per RN, pt was aggresive. Pt was admited yesterday. TF not initiated yet. Current Diet Order/ Nutrition Support no diet order Pertinent Medications colace, folate, theragran, vitamin B1 Pertinent Labs 06/08 Cl 0.5, Alb 3.7 Nutritional Hx/Data Height 5 ft 8 in Height (Calculated Centimeters) 172.7 Current Weight (lbs) 150 lb Weight (Calculated Kilograms) 68.0 Weight (Calculated Grams) 83288.9 [place] Body Weight 154 % [place] Body Weight 98 Body Mass Index (BMI) 22.8 Weight Status Approriate GI Symptoms GI Symptoms None Last BM no record Difficult in: None Usual diet at home Jevisty 1.2 40ml x 20hr, total volume 800ml, provides 960kcal, 43g protein Skin Integrity/Comment: stage 2 sacral ulcer Estimated Nutritional Goals BEE in Kcals: Using Current wt Calories/Kcals/Kg 25-30 Kcals Calculated 6785-8135 Protein: Using Current wt Protein g/k-1.2 considering ulcer Protein Calculated 68-81 Fluid: ml 9576-1901 Nutritional Problem 1. Problem Problem increased nutrition needs ( calorie and protein) Etiology increased metabolic demand for wound healing Signs/Symptoms: state2 ulcer Malnutrition Alert Protein-Calorie Malnutrition N/A Is there a minimum of two criteria No selected? Query Text:Check all the applicable criteria. A minimum of two criteria are recommended for diagnosis of either severe or non-severe malnutrition. Intervention/Recommendation Comments 1. Recommend Fibersource HN bolus feeding, 250ml q4hr with 125ml water flush. This provides 1500ml total volume, 1800kcal, 81g protein and total 1965ml free water, meeting 100% of nutritional needs. 2. Recommend nutrition supplement Arginaid 1pk daily via G-tube to help wound healing. 3. Monitor TF tolerance, wt weekly, skin integrity and labs 1. F/U as high risk in 2-3 days, 06/11-06/12 Expected Outcomes/Goals Expected Outcomes/Goals 1. Pt to meet at least 75% of nutritional needs via nutrition support with tolerance 2. Wt stability, skin integrity to improve, labs to approach WNL.
--- NOTE | 2017-06-18 21:24 | Progress Notes ---
DATE: 06/18/2017 SUBJECTIVE: Chart reviewed and the patient interviewed. Also discussed the patient's condition with the staff and reviewed records and labs. The patient continued to be extremely agitated and he is still confused and anxious. The patient also is still mumbling and talking to himself. The patient also tries to climb the [place] chair and needs to be monitored closely. Otherwise, he can hurt himself. Also, keeps licking his hands for no apparent reason. Otherwise, the patient is compliant with taking his medications with no side effects of medications. ASSESSMENT: The patient is still agitated. TREATMENT PLAN: Continue monitoring his behavior and his condition closely. Also, continue working on his ineffective coping and his compliance with medications and continue to follow up. JOB# [id number]
--- NOTE | 2017-06-22 16:58 | Discharge Summary ---
DATE OF DISCHARGE: 06/18/2017 FINAL DIAGNOSES AND PRIMARY DIAGNOSES: Schizoaffective disorder, bipolar type, with psychotic features. REASON FOR HOSPITALIZATION: The patient was admitted to the hospital because of increased agitation and violent behavior and inability to follow directions. HOSPITAL COURSE: The patient continued to be agitated and in irritable mood. The patient also was not able to follow directions. The patient also was suspicious and paranoid and easily agitated. He also continued to needed lots of instructions and lots of directions. The patient started on Zyprexa and the dose adjusted to 10 mg and also, the patient was given Depakote. Gradually, the patient's affect was brighter. The patient was less agitated. Also, was easier to follow directions and the patient returned back to [facility]. Physical exam of the patient was monitored closely and the patient has no major medical problems while in the hospital. No major abnormal labs. AFTER DISCHARGE PLANS: The patient discharged from the hospital and went to [facility] with plans to follow him up there. EXPECTED OUTCOME AFTER DISCHARGE: Fair if the patient continues with his psychotropic medications and follow up with discharge plans. [facility]# [id number]
== END 2017-06-18 19:15 | DRG 885 ==
LOC: ER 11:27 → EDLOC 14:39 → GERO 14:39
PROVIDERS: ADMIT Psychiatry & Neurology Psychiatry; ATTEND Psychiatry & Neurology Psychiatry
DX: F29 Unspecified psychosis not due to a substance or known physiological condition (principal); Z93.1 Gastrostomy status; L89.152 Pressure ulcer of sacral region, stage 2; R56.9 Unspecified convulsions; F20.9 Schizophrenia, unspecified; R13.10 Dysphagia, unspecified; F39 Unspecified mood [affective] disorder; D72.819 Decreased white blood cell count, unspecified; E78.5 Hyperlipidemia, unspecified; I10 Essential (primary) hypertension
CPT/HCPCS: 36415-UA; 71045-TC; 80053-TC; 80164-TC; 80185-TC; 81001-TC; 83605; 84443-TC; 85025-TC; 93005; J0696; J1200; J1630; J2060; Z7610

== ENCOUNTER 2017-07-03 16:56 | Inpatient (IN) | payer MEDICARE, MEDICAID ==
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
[2017-07-03 17:39] LABS: % EOSINOPHILS 0.4 % (0.0-5.0); % LYMPHOCYTES 12.6 % (20.0-50.0); HEMATOCRIT 33.2 % (41.0-60); HEMOGLOBIN 11.4 gm/dL (12-16); LYMPHOCYTE ABSOLUTE 1.4 Th/cmm (1.5-3.0); MEAN CELL VOLUME 94.8 fl (80-99); MEAN CORPUSCULAR HEMOGLOBIN 32.7 pg (26.0-30.0); MEAN CORPUSCULAR HGB CONC 34.5 pg (28.0-36.0); MEAN PLATELET VOLUME 7.3 fl; MONOCYTE ABSOLUTE 0.3 Th/cmm (0.3-1.0); NEUTROPHILE ABSOLUTE 9.5 Th/cmm (1.8-8.0); PLATELET COUNT 262 Th/cmm (150-400); RED CELL DISTRIBUTION WIDTH 13.8 % (11.5-20.0); WHITE BLOOD COUNT 11.2 Th/cmm (4.8-10.8)
[2017-07-03 17:56] LABS: ALB/GLOB RATIO 1.1 (1.0-1.8); ALBUMIN 3.5 gm/dL (4.2-5.5); ALKALINE PHOSPHATASE 102 U/L (34-104); ANION GAP 7.5 (7.0-16.0); BILIRUBIN,TOTAL 0.5 mg/dL (0.3-1.0); BUN - UREA NITROGEN 10 mg/dL (7-25); CALCIUM SERUM 9.4 mg/dL (8.6-10.3); CARBON DIOXIDE 29.8 mEq/L (21.0-31.0); CHLORIDE 101 mEq/L (98-107); CHOLESTEROL 152 mg/dL (<200); CREATININE - SERUM 0.6 mg/dL (0.7-1.3); GFR AFRICAN-AMERICAN > 60.0 ml/min (>90); GFR NON AFRICAN-AMERICAN > 60.0 ml/min; GLUCOSE 111 mg/dL (70-105); HDL -HIGH DENSITY LIPOPROTEIN 47 mg/dL (23-92); POTASSIUM SERUM 4.3 mEq/L (3.5-5.1); SGOT 17 U/L (13-39); SGPT/ALT 15 U/L (7-52); SODIUM SERUM 134 mEq/L (136-145); TOTAL PROTEIN,SERUM 6.7 gm/dL (6.0-8.3); TRIGLYCERIDES 66 mg/dL (<150)
[2017-07-03 17:58] LABS: ACETAMINOPHEN < 10.0 ug/mL (10.0-30.0); SALICYLATES (ASPIRIN) < 25.0 mg/L (30.0-100.0)
[2017-07-04 00:01] VITALS: BP 100/74
[2017-07-04] MEDS ORDERED: Hydrocodone/APAP 5mg/325mg Tab GT PRN (01:13)
[2017-07-04] MEDS ORDERED: Magnesium Hydroxide (MOM) 30 mL UDC GT PRN (01:13)
[2017-07-04] MEDS ORDERED: Fleet Enema 135 mL RC PRN (01:13)
[2017-07-04] MEDS ORDERED: Non-Formulary Item 1 EA (Cranberry Fruit Extract [Cranberry] 425 MG) GT SCH (09:00)
[2017-07-04] MEDS ORDERED: Multivitamin w/ Minerals Tab PO SCH (09:00)
[2017-07-04] MEDS ORDERED: ZYDIS GT SCH (09:00)
[2017-07-04] MEDS ORDERED: Multivitamin w/ Minerals 15 mL UDC GT SCH (09:00)
[2017-07-04] MEDS: Multivitamin w/ Minerals Tab GT SCH (10:08)
[2017-07-04] MEDS: Vitamin A/Vitamin D 5 gm Packet TP SCH (10:09)
[2017-07-04] MEDS: OLANZapine 5 mg Oral Disintegrating Tab GT SCH ×2 (10:09→16:34)
[2017-07-04] MEDS: Hydrogel 3 oz Tube TP SCH (10:11)
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
[2017-07-04 19:02] LABS: A1C % 4.7 % (4.0-6.0)
[2017-07-05] MEDS: OLANZapine 5 mg Oral Disintegrating Tab GT SCH ×2 (09:58→18:00)
[2017-07-05] MEDS: Vitamin A/Vitamin D 5 gm Packet TP SCH (09:58)
[2017-07-05] MEDS: Multivitamin w/ Minerals Tab GT SCH (09:58)
[2017-07-05] MEDS: Hydrogel 3 oz Tube TP SCH (09:58)
--- NOTE | 2017-07-05 15:13 | Progress Notes ---
DATE: 07/05/2017 SUBJECTIVE: The patient was seen in his room, lying in the bed. The patient appears to be guarded at this time. Otherwise, the patient appears to be in no acute distress. No signs of agitation noted. OBJECTIVE: VITAL SIGNS: Temperature 98, heart rate of 79, blood pressure 115/69, respiration of 18, and 96% on room air. HEENT: Head is atraumatic and normocephalic. Eyes: Bilateral conjunctivae clear. Bilateral pupils equal, round, and reactive. NECK: Supple. No JVD. CARDIOVASCULAR: S1 and S2, without murmur. PULMONARY: Clear to auscultation. GASTROINTESTINAL: Soft and nontender without guarding. Positive bowel sounds. MUSCULOSKELETAL: No clubbing. No cyanosis noted. ASSESSMENT: 1. Schizophrenia. 2. Dementia. 3. Seizure disorder. 4. Hypertension. 5. Hyperlipidemia. PLAN: We will keep the patient inpatient Psychiatric Unit. We will follow up with the psychiatrist to monitor the patient's condition and behavior. We will put the patient on seizure precaution and fall precaution. Treatment plans were discussed with the patient's nurse. Treatment plans were discussed with Dr. Mccormack. JOB# [id number]
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
[2017-07-06] MEDS: Vitamin A/Vitamin D 5 gm Packet TP SCH (09:36)
[2017-07-06] MEDS: OLANZapine 5 mg Oral Disintegrating Tab GT SCH ×2 (09:36→18:41)
[2017-07-06] MEDS: Multivitamin w/ Minerals Tab GT SCH (09:36)
[2017-07-06] MEDS: Hydrogel 3 oz Tube TP SCH (09:37)
--- NOTE | 2017-07-06 10:14 | General Progress Note ---
Subjective - Review of Systems Events since last encounter: patient still psychotic Objective - Results Result Diagrams: 07/03/17 17:32 07/03/17 17:32 Recent Labs: Laboratory Last Values WBC 11.2 Th/cmm (4.8-10.8) H 07/03/17 17:32 RBC 3.50 Mil/cmm (4.30-5.70) L 07/03/17 17:32 Hgb 11.4 gm/dL (12-16) L 07/03/17 17:32 Hct 33.2 % (41.0-60) L 07/03/17 17:32 MCV 94.8 fl (80-99) 07/03/17 17:32 MCH 32.7 pg (26.0-30.0) H 07/03/17 17:32 MCHC Differential 34.5 pg (28.0-36.0) 07/03/17 17:32 RDW 13.8 % (11.5-20.0) 07/03/17 17:32 Plt Count 262 Th/cmm (150-400) 07/03/17 17:32 MPV 7.3 fl 07/03/17 17:32 Neutrophils % 84.0 % (40.0-80.0) H 07/03/17 17:32 Lymphocytes % 12.6 % (20.0-50.0) L 07/03/17 17:32 Monocytes % 3.0 % (2.0-10.0) 07/03/17 17:32 Eosinophils % 0.4 % (0.0-5.0) 07/03/17 17:32 Basophils % 0.0 % (0.0-2.0) 07/03/17 17:32 Sodium 134 mEq/L (136-145) L 07/03/17 17:32 Potassium 4.3 mEq/L (3.5-5.1) 07/03/17 17:32 Chloride 101 mEq/L (98-107) 07/03/17 17:32 Carbon Dioxide 29.8 mEq/L (21.0-31.0) 07/03/17 17:32 Anion Gap 7.5 (7.0-16.0) 07/03/17 17:32 BUN 10 mg/dL (7-25) 07/03/17 17:32 Creatinine 0.6 mg/dL (0.7-1.3) L 07/03/17 17:32 Est GFR ( Amer) > 60.0 ml/min (>90) 07/03/17 17:32 Est GFR (Non-Af Amer) > 60.0 ml/min 07/03/17 17:32 BUN/Creatinine Ratio 16.7 07/03/17 17:32 Glucose 111 mg/dL (70-105) H 07/03/17 17:32 Hemoglobin A1c % 4.7 % (4.0-6.0) 07/03/17 17:32 Calcium 9.4 mg/dL (8.6-10.3) 07/03/17 17:32 Total Bilirubin 0.5 mg/dL (0.3-1.0) 07/03/17 17:32 AST 17 U/L (13-39) 07/03/17 17:32 ALT 15 U/L (7-52) 07/03/17 17:32 Alkaline Phosphatase 102 U/L (34-104) 07/03/17 17:32 Total Protein 6.7 gm/dL (6.0-8.3) 07/03/17 17:32 Albumin 3.5 gm/dL (4.2-5.5) L 07/03/17 17:32 Globulin 3.2 gm/dL 07/03/17 17:32 Albumin/Globulin Ratio 1.1 (1.0-1.8) 07/03/17 17:32 Triglycerides 66 mg/dL (<150) 07/03/17 17:32 Cholesterol 152 mg/dL (<200) 07/03/17 17:32 LDL Cholesterol Direct 92 mg/dL (75-193) 07/03/17 17:32 HDL Cholesterol 47 mg/dL (23-92) 07/03/17 17:32 TSH 1.44 uIU/ml (0.34-5.60) 07/03/17 17:32 Salicylates < 25.0 mg/L (30.0-100.0) L 07/03/17 17:32 Acetaminophen < 10.0 ug/mL (10.0-30.0) L 07/03/17 17:32 Phenytoin < 2.5 ug/ml (10.0-20.0) L 07/03/17 17:37 Ethyl Alcohol < 10 mg/dL (0-10) 07/03/17 17:32 RPR NONREACTIVE (NONREACTIVE) 07/03/17 17:32 - Physical Exam Vitals and I&O: Vital Signs Temp 98.0 F 07/06/17 05:39 Pulse 78 07/06/17 05:39 Resp 20 07/06/17 05:39 BP 100/64 07/06/17 05:39 Pulse Ox 97 07/06/17 05:39 Intake & Output 07/05/17 07/06/17 07/06/17 17:59 06:59 18:59 Intake Total Balance Intake: Oral Other: # Voids # Bowel Movements Stool Characteristics Active Medications: Current Medications Acetaminophen (Tylenol 650mg/20.3ml Suspension) 650 mg GT Q4H PRN PRN Reason: Pain or Fever >101 Stop: 09/02/17 01:28 Acetaminophen (Tylenol 650mg/20.3ml Suspension) 1,000 mg GT Q4H PRN PRN Reason: Pain (Moderate) Stop: 09/02/17 01:27 Acetaminophen/Hydrocodone Bitart ([place] 5mg/325mg) 1 tab GT Q4H PRN PRN Reason: Pain (Severe) Stop: 09/02/17 01:12 Ascorbic Acid (Vitamin C) 500 mg GT DAILY [facility] Stop: 09/02/17 08:59 Last Admin: 07/06/17 09:36 Dose: 500 mg Bandage/Support Products (Hydrogel) 1 appl TP DAILY [facility] Stop: 09/02/17 08:59 Last Admin: 07/06/17 09:37 Dose: Not Given Bisacodyl (Dulcolax 10 Mg Supp) 10 mg RC DAILY PRN PRN Reason: Constipation Stop: 09/02/17 01:12 Clonazepam (Klonopin) 1 mg GT BID [facility] PRN Reason: Protocol Stop: 09/02/17 08:59 Last Admin: 07/06/17 09:36 Dose: 1 mg Folic Acid (Folate) 1 mg GT DAILY [facility] Stop: 09/02/17 08:59 Last Admin: 07/06/17 09:36 Dose: 1 mg Lacosamide (Vimpat) 100 mg GT BID [facility] Stop: 09/02/17 08:59 Last Admin: 07/06/17 09:36 Dose: 100 mg Lorazepam (Ativan) 1 mg PO Q6HR PRN; Protocol PRN Reason: Agitation Stop: 09/02/17 01:47 Last Admin: 07/06/17 04:33 Dose: 1 mg Magnesium Hydroxide (Milk Of Magnesia) 30 ml GT HS PRN PRN Reason: Constipation Stop: 09/02/17 01:12 Mupirocin (Bactroban Oint) 1 appl NS BID YULISSA Stop: 07/09/17 17:01 Last Admin: 07/05/17 18:00 Dose: Not Given Olanzapine (Zyprexa Zydis) 10 mg GT BID YULISSA PRN Reason: Protocol Stop: 09/02/17 08:59 Last Admin: 07/06/17 09:36 Dose: 10 mg Phenytoin (Dilantin) 100 mg GT TID YULISSA Stop: 09/02/17 08:59 Last Admin: 07/06/17 09:35 Dose: 100 mg Sodium Phosphate (Fleet Enema) 135 ml RC Q48H PRN PRN Reason: Constipation Stop: 09/02/17 01:12 Thiamine HCl (Vitamin B1) 100 mg GT DAILY [facility] Stop: 09/02/17 08:59 Last Admin: 07/06/17 09:36 Dose: 100 mg Valproate Sodium (Depakene) 500 mg GT TID YULISSA PRN Reason: Protocol Stop: 09/02/17 08:59 Last Admin: 07/06/17 09:35 Dose: 500 mg Vitamin A (Vitamin A & D) 5 gm TP DAILY [facility] Stop: 09/02/17 08:59 Last Admin: 07/06/17 09:36 Dose: 5 gm Zinc Sulfate (Zinc Sulfate) 220 mg GT DAILY [facility] Stop: 09/02/17 08:59 Last Admin: 07/05/17 09:58 Dose: 220 mg Zolpidem Tartrate (Ambien) 5 mg PO HS PRN PRN Reason: Insomnia Stop: 09/02/17 01:47 Last Admin: 07/05/17 21:30 Dose: 5 mg Assessment/Plan - Problem List Patient Problems: All Active Problems AGGRESSIVE BEHAVIOR (Acute) Nutritional Asmnt/Malnutr-PDOC - Dietary Evaluation Malnutrition Findings (Please click <Entered> for more info): Nutritional Asmnt/Malnutrition Start: 07/04/17 15: 35 Text: Status: Complete Freq: Document 07/04/17 15:36 LCKELLY (Rec: 07/04/17 15:47 [email or web address] [email or web address]) Nutritional Asmnt/Malnutrition Patient General Information Nutritional Screening High Risk Consult Diagnosis psychosis Pertinent Medical Hx/Surgical Hx HTN, dyslipidemia, PUD/GERD, seizures, dementia, schizopphrenia, ecchymosis, PEG-Gtube Subjective Information Consult received for nutrition /supplement. Spoke with RN to use Boost as substitution to Ensure since we carry different brand products. Current Diet Order/ Nutrition Support 2 cans of Ensure bolus feed q6hr Pertinent Medications vit C, folate, vit B1, Vit A&D , zinc Pertinent Labs 07/03 Na 124, Cr 0.6, glucose 111, Alb 3.5 Nutritional Hx/Data Height 1.73 m Height (Calculated Centimeters) 172.7 Current Weight (lbs) 68.039 kg Weight (Calculated Kilograms) 68.0 Weight (Calculated Grams) [address]37.9 [place] Body Weight 154 Body Mass Index (BMI) 22.8 Weight Status Approriate GI Symptoms GI Symptoms None Last BM NO RECORD Difficult in: None Skin Integrity/Comment: dryness Estimated Nutritional Goals BEE in Kcals: Using Current wt Calories/Kcals/Kg 25-30 Kcals Calculated 0975-2053 Protein: Using Current wt Protein g/k-1.2 Protein Calculated 68-82 Fluid: ml 1700-2040ml (1ml/kcal) Nutritional Problem No current Nutrition Prob Problem N/A Intervention/Recommendation Comments 1. Current bolus feeding regimen provides 1896 total volume, 1920kcal, 80g protein, 1576ml free water, meeting 100% of nutritional needs. 2. Recommend 50ml water flush q6hr via gtube 3. Monitor wt, labs and skin integrity 4. F/U as moderate risk in 3-5 days, 07/07-07/09 Expected Outcomes/Goals Expected Outcomes/Goals 1. Pt to meet at least 75% of nutritional needs. 2. Wt stability, skin to remain intact, labs to approach WNL.
--- NOTE | 2017-07-07 09:38 | General Progress Note ---
Subjective - Review of Systems Events since last encounter: patient disorganized denies pain Objective - Results Result Diagrams: 07/03/17 17:32 07/03/17 17:32 Recent Labs: Laboratory Last Values WBC 11.2 Th/cmm (4.8-10.8) H 07/03/17 17:32 RBC 3.50 Mil/cmm (4.30-5.70) L 07/03/17 17:32 Hgb 11.4 gm/dL (12-16) L 07/03/17 17:32 Hct 33.2 % (41.0-60) L 07/03/17 17:32 MCV 94.8 fl (80-99) 07/03/17 17:32 MCH 32.7 pg (26.0-30.0) H 07/03/17 17:32 MCHC Differential 34.5 pg (28.0-36.0) 07/03/17 17:32 RDW 13.8 % (11.5-20.0) 07/03/17 17:32 Plt Count 262 Th/cmm (150-400) 07/03/17 17:32 MPV 7.3 fl 07/03/17 17:32 Neutrophils % 84.0 % (40.0-80.0) H 07/03/17 17:32 Lymphocytes % 12.6 % (20.0-50.0) L 07/03/17 17:32 Monocytes % 3.0 % (2.0-10.0) 07/03/17 17:32 Eosinophils % 0.4 % (0.0-5.0) 07/03/17 17:32 Basophils % 0.0 % (0.0-2.0) 07/03/17 17:32 Sodium 134 mEq/L (136-145) L 07/03/17 17:32 Potassium 4.3 mEq/L (3.5-5.1) 07/03/17 17:32 Chloride 101 mEq/L (98-107) 07/03/17 17:32 Carbon Dioxide 29.8 mEq/L (21.0-31.0) 07/03/17 17:32 Anion Gap 7.5 (7.0-16.0) 07/03/17 17:32 BUN 10 mg/dL (7-25) 07/03/17 17:32 Creatinine 0.6 mg/dL (0.7-1.3) L 07/03/17 17:32 Est GFR ( Amer) > 60.0 ml/min (>90) 07/03/17 17:32 Est GFR (Non-Af Amer) > 60.0 ml/min 07/03/17 17:32 BUN/Creatinine Ratio 16.7 07/03/17 17:32 Glucose 111 mg/dL (70-105) H 07/03/17 17:32 Hemoglobin A1c % 4.7 % (4.0-6.0) 07/03/17 17:32 Calcium 9.4 mg/dL (8.6-10.3) 07/03/17 17:32 Total Bilirubin 0.5 mg/dL (0.3-1.0) 07/03/17 17:32 AST 17 U/L (13-39) 07/03/17 17:32 ALT 15 U/L (7-52) 07/03/17 17:32 Alkaline Phosphatase 102 U/L (34-104) 07/03/17 17:32 Total Protein 6.7 gm/dL (6.0-8.3) 07/03/17 17:32 Albumin 3.5 gm/dL (4.2-5.5) L 07/03/17 17:32 Globulin 3.2 gm/dL 07/03/17 17:32 Albumin/Globulin Ratio 1.1 (1.0-1.8) 07/03/17 17:32 Triglycerides 66 mg/dL (<150) 07/03/17 17:32 Cholesterol 152 mg/dL (<200) 07/03/17 17:32 LDL Cholesterol Direct 92 mg/dL (75-193) 07/03/17 17:32 HDL Cholesterol 47 mg/dL (23-92) 07/03/17 17:32 TSH 1.44 uIU/ml (0.34-5.60) 07/03/17 17:32 Salicylates < 25.0 mg/L (30.0-100.0) L 07/03/17 17:32 Acetaminophen < 10.0 ug/mL (10.0-30.0) L 07/03/17 17:32 Phenytoin < 2.5 ug/ml (10.0-20.0) L 07/03/17 17:37 Ethyl Alcohol < 10 mg/dL (0-10) 07/03/17 17:32 RPR NONREACTIVE (NONREACTIVE) 07/03/17 17:32 - Physical Exam Vitals and I&O: Vital Signs Temp 98.2 F 07/07/17 05:57 Pulse 80 07/07/17 05:57 Resp 19 07/07/17 05:57 BP 111/74 07/07/17 05:57 Pulse Ox 97 07/07/17 05:57 Intake & Output 07/06/17 07/07/17 07/07/17 18:59 06:59 18:59 Intake Total 1200 Balance 1200 Intake: Oral 1200 Other: # Voids 2 # Bowel Movements 0 Stool Characteristics Liquid Brown Active Medications: Current Medications Acetaminophen (Tylenol 650mg/20.3ml Suspension) 650 mg GT Q4H PRN PRN Reason: Pain or Fever >101 Stop: 09/02/17 01:28 Acetaminophen (Tylenol 650mg/20.3ml Suspension) 1,000 mg GT Q4H PRN PRN Reason: Pain (Moderate) Stop: 09/02/17 01:27 Acetaminophen/Hydrocodone Bitart ([place] 5mg/325mg) 1 tab GT Q4H PRN PRN Reason: Pain (Severe) Stop: 09/02/17 01:12 Ascorbic Acid (Vitamin C) 500 mg GT DAILY [facility] Stop: 09/02/17 08:59 Last Admin: 07/06/17 09:36 Dose: 500 mg Bandage/Support Products (Hydrogel) 1 appl TP DAILY [facility] Stop: 09/02/17 08:59 Last Admin: 07/06/17 09:37 Dose: Not Given Bisacodyl (Dulcolax 10 Mg Supp) 10 mg RC DAILY PRN PRN Reason: Constipation Stop: 09/02/17 01:12 Clonazepam (Klonopin) 1 mg GT BID [facility] PRN Reason: Protocol Stop: 09/02/17 08:59 Last Admin: 07/06/17 18:41 Dose: 1 mg Folic Acid (Folate) 1 mg GT DAILY [facility] Stop: 09/02/17 08:59 Last Admin: 07/06/17 09:36 Dose: 1 mg Lacosamide (Vimpat) 100 mg GT BID [facility] Stop: 09/02/17 08:59 Last Admin: 07/06/17 18:41 Dose: 100 mg Lorazepam (Ativan) 1 mg PO Q6HR PRN; Protocol PRN Reason: Agitation Stop: 09/02/17 01:47 Last Admin: 07/07/17 00:16 Dose: 1 mg Magnesium Hydroxide (Milk Of Magnesia) 30 ml GT HS PRN PRN Reason: Constipation Stop: 09/02/17 01:12 Mupirocin (Bactroban Oint) 1 appl NS BID [facility] Stop: 07/09/17 17:01 Last Admin: 07/06/17 18:43 Dose: 1 appl Olanzapine (Zyprexa Zydis) 10 mg GT BID [facility] PRN Reason: Protocol Stop: 09/02/17 08:59 Last Admin: 07/06/17 18:41 Dose: 10 mg Phenytoin (Dilantin) 100 mg GT TID [facility] Stop: 09/02/17 08:59 Last Admin: 07/06/17 21:56 Dose: 100 mg Sodium Phosphate (Fleet Enema) 135 ml RC Q48H PRN PRN Reason: Constipation Stop: 09/02/17 01:12 Thiamine HCl (Vitamin B1) 100 mg GT DAILY [facility] Stop: 09/02/17 08:59 Last Admin: 07/06/17 09:36 Dose: 100 mg Valproate Sodium (Depakene) 500 mg GT TID [facility] PRN Reason: Protocol Stop: 09/02/17 08:59 Last Admin: 07/06/17 21:56 Dose: 500 mg Vitamin A (Vitamin A & D) 5 gm TP DAILY [facility] Stop: 09/02/17 08:59 Last Admin: 07/06/17 09:36 Dose: 5 gm Zinc Sulfate (Zinc Sulfate) 220 mg GT DAILY [facility] Stop: 09/02/17 08:59 Last Admin: 07/06/17 10:17 Dose: 220 mg Zolpidem Tartrate (Ambien) 5 mg PO HS PRN PRN Reason: Insomnia Stop: 09/02/17 01:47 Last Admin: 07/06/17 21:56 Dose: 5 mg Assessment/Plan - Problem List Patient Problems: All Active Problems AGGRESSIVE BEHAVIOR (Acute) Nutritional Asmnt/Malnutr-PDOC - Dietary Evaluation Malnutrition Findings (Please click <Entered> for more info): Nutritional Asmnt/Malnutrition Start: 07/04/17 15: 35 Text: Status: Complete Freq: Document 07/04/17 15:36 LCHENG (Rec: 07/04/17 15:47 LCHENNYG [email or web address]) Nutritional Asmnt/Malnutrition Patient General Information Nutritional Screening High Risk Consult Diagnosis psychosis Pertinent Medical Hx/Surgical Hx HTN, dyslipidemia, PUD/GERD, seizures, dementia, schizopphrenia, ecchymosis, PEG-Gtube Subjective Information Consult received for nutrition /supplement. Spoke with RN to use Boost as substitution to Ensure since we carry different brand products. Current Diet Order/ Nutrition Support 2 cans of Ensure bolus feed q6hr Pertinent Medications vit C, folate, vit B1, Vit A&D , zinc Pertinent Labs 07/03 Na 124, Cr 0.6, glucose 111, Alb 3.5 Nutritional Hx/Data Height 1.73 m Height (Calculated Centimeters) 172.7 Current Weight (lbs) 68.039 kg Weight (Calculated Kilograms) 68.0 Weight (Calculated Grams) 63368.9 [place] Body Weight 154 Body Mass Index (BMI) 22.8 Weight Status Approriate GI Symptoms GI Symptoms None Last BM NO RECORD Difficult in: None Skin Integrity/Comment: dryness Estimated Nutritional Goals BEE in Kcals: Using Current wt Calories/Kcals/Kg 25-30 Kcals Calculated 5184-9256 Protein: Using Current wt Protein g/k-1.2 Protein Calculated 68-82 Fluid: ml 1700-2040ml (1ml/kcal) Nutritional Problem No current Nutrition Prob Problem N/A Intervention/Recommendation Comments 1. Current bolus feeding regimen provides 1896 total volume, 1920kcal, 80g protein, 1576ml free water, meeting 100% of nutritional needs. 2. Recommend 50ml water flush q6hr via gtube 3. Monitor wt, labs and skin integrity 4. F/U as moderate risk in 3-5 days, 07/07-07/09 Expected Outcomes/Goals Expected Outcomes/Goals 1. Pt to meet at least 75% of nutritional needs. 2. Wt stability, skin to remain intact, labs to approach WNL.
[2017-07-07] MEDS: Vitamin A/Vitamin D 5 gm Packet TP SCH (10:32)
[2017-07-07] MEDS: Multivitamin w/ Minerals Tab GT SCH (10:32)
[2017-07-07] MEDS: OLANZapine 5 mg Oral Disintegrating Tab GT SCH (10:34)
[2017-07-07] MEDS: Hydrogel 3 oz Tube TP SCH (10:35)
[2017-07-07] MEDS: OLANZapine 10 mg Oral Disintegrating Tab GT SCH (17:32)
--- NOTE | 2017-07-07 21:08 | Progress Notes ---
DATE: 07/07/2017 A 57-year-old male with history of schizoaffective, agitated, aggressive, hitting staff, broke a window in the facility, unable to follow directions. The patient on [id number] slumped over, in a Lesvia chair, talks nonsense, occasionally asked staff a beer. He is arousable but does remain somewhat unruly at times. Staff noting some improvement, seems calmer, more redirectable, no destruction of property in the unit. The patient is not a good historian, seems to be mumbling to self. ASSESSMENT: The patient remains symptomatic, unruly, agitated, destruction of property but seems to be calming down. PLAN: We will continue to monitor. Continue medications at current dose. Given his history and current presentation, there are ongoing safety concerns, but in general, the patient seems to be calmer versus when he was first assessed and admitted. JOB# [id number]
[2017-07-08] MEDS: Multivitamin w/ Minerals Tab GT SCH (09:00)
[2017-07-08] MEDS: Vitamin A/Vitamin D 5 gm Packet TP SCH (09:00)
[2017-07-08] MEDS: OLANZapine 10 mg Oral Disintegrating Tab GT SCH ×2 (09:00→16:58)
[2017-07-08] MEDS: Hydrogel 3 oz Tube TP SCH (09:00)
--- NOTE | 2017-07-08 16:21 | Internal Medicine Prog Note ---
Internal Medicine Subjective - Subjective Service Date: 07/08/17 Patient seen and examined:: with staff Patient is:: awake Per staff patient has:: tolerating meds Internal Medicine Objective - Results Result Diagrams: 07/03/17 17:32 07/03/17 17:32 Recent Labs: Laboratory Last Values WBC 11.2 Th/cmm (4.8-10.8) H 07/03/17 17:32 RBC 3.50 Mil/cmm (4.30-5.70) L 07/03/17 17:32 Hgb 11.4 gm/dL (12-16) L 07/03/17 17:32 Hct 33.2 % (41.0-60) L 07/03/17 17:32 MCV 94.8 fl (80-99) 07/03/17 17:32 MCH 32.7 pg (26.0-30.0) H 07/03/17 17:32 MCHC Differential 34.5 pg (28.0-36.0) 07/03/17 17:32 RDW 13.8 % (11.5-20.0) 07/03/17 17:32 Plt Count 262 Th/cmm (150-400) 07/03/17 17:32 MPV 7.3 fl 07/03/17 17:32 Neutrophils % 84.0 % (40.0-80.0) H 07/03/17 17:32 Lymphocytes % 12.6 % (20.0-50.0) L 07/03/17 17:32 Monocytes % 3.0 % (2.0-10.0) 07/03/17 17:32 Eosinophils % 0.4 % (0.0-5.0) 07/03/17 17:32 Basophils % 0.0 % (0.0-2.0) 07/03/17 17:32 Sodium 134 mEq/L (136-145) L 07/03/17 17:32 Potassium 4.3 mEq/L (3.5-5.1) 07/03/17 17:32 Chloride 101 mEq/L (98-107) 07/03/17 17:32 Carbon Dioxide 29.8 mEq/L (21.0-31.0) 07/03/17 17:32 Anion Gap 7.5 (7.0-16.0) 07/03/17 17:32 BUN 10 mg/dL (7-25) 07/03/17 17:32 Creatinine 0.6 mg/dL (0.7-1.3) L 07/03/17 17:32 Est GFR ( Amer) > 60.0 ml/min (>90) 07/03/17 17:32 Est GFR (Non-Af Amer) > 60.0 ml/min 07/03/17 17:32 BUN/Creatinine Ratio 16.7 07/03/17 17:32 Glucose 111 mg/dL (70-105) H 07/03/17 17:32 Hemoglobin A1c % 4.7 % (4.0-6.0) 07/03/17 17:32 Calcium 9.4 mg/dL (8.6-10.3) 07/03/17 17:32 Total Bilirubin 0.5 mg/dL (0.3-1.0) 07/03/17 17:32 AST 17 U/L (13-39) 07/03/17 17:32 ALT 15 U/L (7-52) 07/03/17 17:32 Alkaline Phosphatase 102 U/L (34-104) 07/03/17 17:32 Total Protein 6.7 gm/dL (6.0-8.3) 07/03/17 17:32 Albumin 3.5 gm/dL (4.2-5.5) L 07/03/17 17:32 Globulin 3.2 gm/dL 07/03/17 17:32 Albumin/Globulin Ratio 1.1 (1.0-1.8) 07/03/17 17:32 Triglycerides 66 mg/dL (<150) 07/03/17 17:32 Cholesterol 152 mg/dL (<200) 07/03/17 17:32 LDL Cholesterol Direct 92 mg/dL (75-193) 07/03/17 17:32 HDL Cholesterol 47 mg/dL (23-92) 07/03/17 17:32 TSH 1.44 uIU/ml (0.34-5.60) 07/03/17 17:32 Salicylates < 25.0 mg/L (30.0-100.0) L 07/03/17 17:32 Acetaminophen < 10.0 ug/mL (10.0-30.0) L 03/08/18 17:32 Phenytoin < 2.5 ug/ml (10.0-20.0) L 07/03/17 17:37 Ethyl Alcohol < 10 mg/dL (0-10) 07/03/17 17:32 RPR NONREACTIVE (NONREACTIVE) 07/03/17 17:32 - Physical Exam Vitals and I&O: Vital Signs Temp 97.3 F 07/08/17 05:33 Pulse 83 07/08/17 05:33 Resp 19 07/08/17 05:33 BP 108/68 07/08/17 05:33 Pulse Ox 99 07/08/17 05:33 Intake & Output 07/07/17 07/08/17 07/08/17 18:59 06:59 18:59 Intake Total 0 Balance 0 Intake: Oral 0 Other: # Voids 2 # Bowel Movements 0 Active Medications: Current Medications Acetaminophen (Tylenol 650mg/20.3ml Suspension) 650 mg GT Q4H PRN PRN Reason: Pain or Fever >101 Stop: 09/02/17 01:28 Acetaminophen (Tylenol 650mg/20.3ml Suspension) 1,000 mg GT Q4H PRN PRN Reason: Pain (Moderate) Stop: 09/02/17 01:27 Acetaminophen/Hydrocodone Bitart ([place] 5mg/325mg) 1 tab GT Q4H PRN PRN Reason: Pain (Severe) Stop: 09/02/17 01:12 Last Admin: 07/07/17 22:34 Dose: 1 tab Ascorbic Acid (Vitamin C) 500 mg GT DAILY [facility] Stop: 09/02/17 08:59 Last Admin: 07/08/17 09:00 Dose: 500 mg Bandage/Support Products (Hydrogel) 1 appl TP DAILY [facility] Stop: 09/02/17 08:59 Last Admin: 07/08/17 09:00 Dose: 1 appl Bisacodyl (Dulcolax 10 Mg Supp) 10 mg RC DAILY PRN PRN Reason: Constipation Stop: 09/02/17 01:12 Clonazepam (Klonopin) 1 mg GT BID [facility] PRN Reason: Protocol Stop: 09/02/17 08:59 Last Admin: 07/08/17 09:00 Dose: 1 mg Folic Acid (Folate) 1 mg GT DAILY [facility] Stop: 09/02/17 08:59 Last Admin: 07/08/17 09:00 Dose: 1 mg Lacosamide (Vimpat) 100 mg GT BID [facility] Stop: 09/02/17 08:59 Last Admin: 07/08/17 09:00 Dose: 100 mg Lorazepam (Ativan) 1 mg PO Q6HR PRN; Protocol PRN Reason: Agitation Stop: 09/02/17 01:47 Last Admin: 07/07/17 21:36 Dose: 1 mg Magnesium Hydroxide (Milk Of Magnesia) 30 ml GT HS PRN PRN Reason: Constipation Stop: 09/02/17 01:12 Mupirocin (Bactroban Oint) 1 appl NS BID [facility] Stop: 07/09/17 17:01 Last Admin: 07/08/17 09:00 Dose: 1 appl Olanzapine (Zyprexa Zydis) 10 mg GT BID [facility] Stop: 09/05/17 16:59 Last Admin: 07/08/17 09:00 Dose: 10 mg Phenytoin (Dilantin) 100 mg GT TID [facility] Stop: 09/02/17 08:59 Last Admin: 07/08/17 14:11 Dose: 100 mg Sodium Phosphate (Fleet Enema) 135 ml RC Q48H PRN PRN Reason: Constipation Stop: 09/02/17 01:12 Thiamine HCl (Vitamin B1) 100 mg GT DAILY [facility] Stop: 09/02/17 08:59 Last Admin: 07/08/17 09:00 Dose: 100 mg Valproate Sodium (Depakene) 500 mg GT TID [facility] PRN Reason: Protocol Stop: 09/02/17 08:59 Last Admin: 07/08/17 14:11 Dose: 500 mg Vitamin A (Vitamin A & D) 5 gm TP DAILY [facility] Stop: 09/02/17 08:59 Last Admin: 07/08/17 09:00 Dose: 5 gm Zinc Sulfate (Zinc Sulfate) 220 mg GT DAILY [facility] Stop: 09/02/17 08:59 Last Admin: 07/08/17 09:00 Dose: 220 mg Zolpidem Tartrate (Ambien) 5 mg PO HS PRN PRN Reason: Insomnia Stop: 09/02/17 01:47 Last Admin: 07/06/17 21:56 Dose: 5 mg General: alert HEENT: NC/AT, PERRLA Neck: Supple Lungs: CTAB Cardiovascular: RRR, Normal S1, Normal S2, without murmur Abdomen: soft, non-tender, non-distended, positive bowel sound Neurological: unable to follow command Internal Medicine Assmt/Plan - Assessment Assessment: Current Active Problems Problem Status Onset AGGRESSIVE BEHAVIOR Acute HTN Dyslipidemia Seizures Dementia schizophrenia - Plan Plan: seizure precautions fall precautions continue current orders Nutritional Asmnt/Malnutr-PDOC - Dietary Evaluation Malnutrition Findings (Please click <Entered> for more info): Nutritional Asmnt/Malnutrition Start: 07/04/17 15: 35 Text: Status: Complete Freq: Document 07/04/17 15:36 LCHENG (Rec: 07/04/17 15:47 LCHENG [email or web address]) Nutritional Asmnt/Malnutrition Patient General Information Nutritional Screening High Risk Consult Diagnosis psychosis Pertinent Medical Hx/Surgical Hx HTN, dyslipidemia, PUD/GERD, seizures, dementia, schizopphrenia, ecchymosis, PEG-Gtube Subjective Information Consult received for nutrition /supplement. Spoke with RN to use Boost as substitution to Ensure since we carry different brand products. Current Diet Order/ Nutrition Support 2 cans of Ensure bolus feed q6hr Pertinent Medications vit C, folate, vit B1, Vit A&D , zinc Pertinent Labs 07/03 Na 124, Cr 0.6, glucose 111, Alb 3.5 Nutritional Hx/Data Height 5 ft 8 in Height (Calculated Centimeters) 172.7 Current Weight (lbs) 150 lb Weight (Calculated Kilograms) 68.0 Weight (Calculated Grams) 46184.9 [place] Body Weight 154 Body Mass Index (BMI) 22.8 Weight Status Approriate GI Symptoms GI Symptoms None Last BM NO RECORD Difficult in: None Skin Integrity/Comment: dryness Estimated Nutritional Goals BEE in Kcals: Using Current wt Calories/Kcals/Kg 25-30 Kcals Calculated 8092-7849 Protein: Using Current wt Protein g/k-1.2 Protein Calculated 68-82 Fluid: ml 1700-2040ml (1ml/kcal) Nutritional Problem No current Nutrition Prob Problem N/A Intervention/Recommendation Comments 1. Current bolus feeding regimen provides 1896 total volume, 1920kcal, 80g protein, 1576ml free water, meeting 100% of nutritional needs. 2. Recommend 50ml water flush q6hr via gtube 3. Monitor wt, labs and skin integrity 4. F/U as moderate risk in 3-5 days, 07/07-07/09 Expected Outcomes/Goals Expected Outcomes/Goals 1. Pt to meet at least 75% of nutritional needs. 2. Wt stability, skin to remain intact, labs to approach WNL.
--- NOTE | 2017-07-08 16:33 | Progress Notes ---
DATE: 07/08/2017 SUBJECTIVE: The patient talking nonsense, history of schizoaffective, seen today, 07/08/2017. He is still in a Lesvia chair, rambling nonsensically, repeating others, still restless, difficult to communicate with. Still at times trying to fight with staff. MEDICATIONS: Noted. ASSESSMENT: The patient remains symptomatic, trying to bite staff, still becomes unruly at times, not safe for a lower level of care, still with aggression. PLAN: We will continue to monitor. Continue Zyprexa and Depakote. Given his ongoing symptoms, there are real and overt safety concerns. JOB# [id number]
[2017-07-09] MEDS: OLANZapine 10 mg Oral Disintegrating Tab GT SCH ×2 (09:53→16:43)
[2017-07-09] MEDS: Vitamin A/Vitamin D 5 gm Packet TP SCH (09:53)
[2017-07-09] MEDS: Multivitamin w/ Minerals Tab GT SCH (09:53)
[2017-07-09] MEDS: Hydrogel 3 oz Tube TP SCH (09:53)
--- NOTE | 2017-07-09 16:57 | Internal Medicine Prog Note ---
Internal Medicine Subjective - Subjective Patient is:: awake Per staff patient has:: tolerating meds Internal Medicine Objective - Results Result Diagrams: 07/03/17 17:32 07/03/17 17:32 Recent Labs: Laboratory Last Values WBC 11.2 Th/cmm (4.8-10.8) H 07/03/17 17:32 RBC 3.50 Mil/cmm (4.30-5.70) L 07/03/17 17:32 Hgb 11.4 gm/dL (12-16) L 07/03/17 17:32 Hct 33.2 % (41.0-60) L 07/03/17 17:32 MCV 94.8 fl (80-99) 07/03/17 17:32 MCH 32.7 pg (26.0-30.0) H 07/03/17 17:32 MCHC Differential 34.5 pg (28.0-36.0) 07/03/17 17:32 RDW 13.8 % (11.5-20.0) 07/03/17 17:32 Plt Count 262 Th/cmm (150-400) 07/03/17 17:32 MPV 7.3 fl 07/03/17 17:32 Neutrophils % 84.0 % (40.0-80.0) H 07/03/17 17:32 Lymphocytes % 12.6 % (20.0-50.0) L 07/03/17 17:32 Monocytes % 3.0 % (2.0-10.0) 07/03/17 17:32 Eosinophils % 0.4 % (0.0-5.0) 07/03/17 17:32 Basophils % 0.0 % (0.0-2.0) 07/03/17 17:32 Sodium 134 mEq/L (136-145) L 07/03/17 17:32 Potassium 4.3 mEq/L (3.5-5.1) 07/03/17 17:32 Chloride 101 mEq/L (98-107) 07/03/17 17:32 Carbon Dioxide 29.8 mEq/L (21.0-31.0) 07/03/17 17:32 Anion Gap 7.5 (7.0-16.0) 07/03/17 17:32 BUN 10 mg/dL (7-25) 07/03/17 17:32 Creatinine 0.6 mg/dL (0.7-1.3) L 07/03/17 17:32 Est GFR ( Amer) > 60.0 ml/min (>90) 07/03/17 17:32 Est GFR (Non-Af Amer) > 60.0 ml/min 07/03/17 17:32 BUN/Creatinine Ratio 16.7 07/03/17 17:32 Glucose 111 mg/dL (70-105) H 07/03/17 17:32 Hemoglobin A1c % 4.7 % (4.0-6.0) 07/03/17 17:32 Calcium 9.4 mg/dL (8.6-10.3) 07/03/17 17:32 Total Bilirubin 0.5 mg/dL (0.3-1.0) 07/03/17 17:32 AST 17 U/L (13-39) 07/03/17 17:32 ALT 15 U/L (7-52) 07/03/17 17:32 Alkaline Phosphatase 102 U/L (34-104) 07/03/17 17:32 Total Protein 6.7 gm/dL (6.0-8.3) 07/03/17 17:32 Albumin 3.5 gm/dL (4.2-5.5) L 07/03/17 17:32 Globulin 3.2 gm/dL 07/03/17 17:32 Albumin/Globulin Ratio 1.1 (1.0-1.8) 07/03/17 17:32 Triglycerides 66 mg/dL (<150) 07/03/17 17:32 Cholesterol 152 mg/dL (<200) 07/03/17 17:32 LDL Cholesterol Direct 92 mg/dL (75-193) 07/03/17 17:32 HDL Cholesterol 47 mg/dL (23-92) 07/03/17 17:32 TSH 1.44 uIU/ml (0.34-5.60) 07/03/17 17:32 Salicylates < 25.0 mg/L (30.0-100.0) L 07/03/17 17:32 Acetaminophen < 10.0 ug/mL (10.0-30.0) L 07/03/17 17:32 Phenytoin < 2.5 ug/ml (10.0-20.0) L 07/03/17 17:37 Ethyl Alcohol < 10 mg/dL (0-10) 07/03/17 17:32 RPR NONREACTIVE (NONREACTIVE) 07/03/17 17:32 - Physical Exam Vitals and I&O: Vital Signs Temp 97.9 F 07/09/17 05:43 Pulse 78 07/09/17 05:43 Resp 20 07/09/17 05:43 BP 105/66 07/09/17 05:43 Pulse Ox 99 07/09/17 05:43 Intake & Output 07/08/17 07/09/17 07/09/17 18:59 06:59 18:59 Intake Total 0 Balance 0 Intake: Oral 0 Other: # Voids 3 # Bowel Movements 0 Active Medications: Current Medications Acetaminophen (Tylenol 650mg/20.3ml Suspension) 650 mg GT Q4H PRN PRN Reason: Pain or Fever >101 Stop: 09/02/17 01:28 Acetaminophen (Tylenol 650mg/20.3ml Suspension) 1,000 mg GT Q4H PRN PRN Reason: Pain (Moderate) Stop: 09/02/17 01:27 Acetaminophen/Hydrocodone Bitart ([place] 5mg/325mg) 1 tab GT Q4H PRN PRN Reason: Pain (Severe) Stop: 09/02/17 01:12 Last Admin: 07/07/17 22:34 Dose: 1 tab Ascorbic Acid (Vitamin C) 500 mg GT DAILY [facility] Stop: 09/02/17 08:59 Last Admin: 07/09/17 09:53 Dose: 500 mg Bandage/Support Products (Hydrogel) 1 appl TP DAILY [facility] Stop: 09/02/17 08:59 Last Admin: 07/09/17 09:53 Dose: 1 appl Bisacodyl (Dulcolax 10 Mg Supp) 10 mg RC DAILY PRN PRN Reason: Constipation Stop: 09/02/17 01:12 Clonazepam (Klonopin) 1 mg GT BID [facility] PRN Reason: Protocol Stop: 09/02/17 08:59 Last Admin: 07/09/17 16:43 Dose: 1 mg Folic Acid (Folate) 1 mg GT DAILY [facility] Stop: 09/02/17 08:59 Last Admin: 07/09/17 09:53 Dose: 1 mg Lacosamide (Vimpat) 100 mg GT BID [facility] Stop: 09/02/17 08:59 Last Admin: 07/09/17 16:43 Dose: 100 mg Lorazepam (Ativan) 1 mg PO Q6HR PRN; Protocol PRN Reason: Agitation Stop: 09/02/17 01:47 Last Admin: 07/07/17 21:36 Dose: 1 mg Magnesium Hydroxide (Milk Of Magnesia) 30 ml GT HS PRN PRN Reason: Constipation Stop: 09/02/17 01:12 Mupirocin (Bactroban Oint) 1 appl NS BID [facility] Stop: 07/09/17 17:01 Last Admin: 07/09/17 16:43 Dose: Not Given Olanzapine (Zyprexa Zydis) 10 mg GT BID YULISSA Stop: 09/05/17 16:59 Last Admin: 07/09/17 16:43 Dose: 10 mg Phenytoin (Dilantin) 100 mg GT TID YULISSA Stop: 09/02/17 08:59 Last Admin: 07/09/17 13:05 Dose: 100 mg Sodium Phosphate (Fleet Enema) 135 ml RC Q48H PRN PRN Reason: Constipation Stop: 09/02/17 01:12 Thiamine HCl (Vitamin B1) 100 mg GT DAILY YULISSA Stop: 09/02/17 08:59 Last Admin: 07/09/17 09:53 Dose: 100 mg Valproate Sodium (Depakene) 500 mg GT TID YULISSA PRN Reason: Protocol Stop: 09/02/17 08:59 Last Admin: 07/09/17 13:05 Dose: 500 mg Vitamin A (Vitamin A & D) 5 gm TP DAILY YULISSA Stop: 09/02/17 08:59 Last Admin: 07/09/17 09:53 Dose: 5 gm Zinc Sulfate (Zinc Sulfate) 220 mg GT DAILY YULISSA Stop: 09/02/17 08:59 Last Admin: 07/09/17 09:53 Dose: 220 mg Zolpidem Tartrate (Ambien) 5 mg PO HS PRN PRN Reason: Insomnia Stop: 09/02/17 01:47 Last Admin: 07/06/17 21:56 Dose: 5 mg General: alert HEENT: NC/AT, PERRLA Neck: Supple Lungs: CTAB Cardiovascular: RRR, Normal S1, Normal S2, without murmur Abdomen: soft, non-tender, non-distended, positive bowel sound Neurological: unable to follow command Nutritional Asmnt/Malnutr-PDOC - Dietary Evaluation Malnutrition Findings (Please click <Entered> for more info): Nutritional Asmnt/Malnutrition Start: 07/04/17 15: 35 Text: Status: Complete Freq: Document 07/04/17 15:36 CARLIN (Rec: 07/04/17 15:47 [email or web address] [email or web address]) Nutritional Asmnt/Malnutrition Patient General Information Nutritional Screening High Risk Consult Diagnosis psychosis Pertinent Medical Hx/Surgical Hx HTN, dyslipidemia, PUD/GERD, seizures, dementia, schizopphrenia, ecchymosis, PEG-Gtube Subjective Information Consult received for nutrition /supplement. Spoke with RN to use Boost as substitution to Ensure since we carry different brand products. Current Diet Order/ Nutrition Support 2 cans of Ensure bolus feed q6hr Pertinent Medications vit C, folate, vit B1, Vit A&D , zinc Pertinent Labs 07/03 Na 124, Cr 0.6, glucose 111, Alb 3.5 Nutritional Hx/Data Height 1.73 m Height (Calculated Centimeters) 172.7 Current Weight (lbs) 68.039 kg Weight (Calculated Kilograms) 68.0 Weight (Calculated Grams) 63303.9 [place] Body Weight 154 Body Mass Index (BMI) 22.8 Weight Status Approriate GI Symptoms GI Symptoms None Last BM NO RECORD Difficult in: None Skin Integrity/Comment: dryness Estimated Nutritional Goals BEE in Kcals: Using Current wt Calories/Kcals/Kg 25-30 Kcals Calculated 1666-0806 Protein: Using Current wt Protein g/k-1.2 Protein Calculated 68-82 Fluid: ml 1700-2040ml (1ml/kcal) Nutritional Problem No current Nutrition Prob Problem N/A Intervention/Recommendation Comments 1. Current bolus feeding regimen provides 1896 total volume, 1920kcal, 80g protein, 1576ml free water, meeting 100% of nutritional needs. 2. Recommend 50ml water flush q6hr via gtube 3. Monitor wt, labs and skin integrity 4. F/U as moderate risk in 3-5 days, 07/07-07/09 Expected Outcomes/Goals Expected Outcomes/Goals 1. Pt to meet at least 75% of nutritional needs. 2. Wt stability, skin to remain intact, labs to approach WNL.
--- NOTE | 2017-07-10 06:11 | Progress Notes ---
DATE: 07/09/2017 SUBJECTIVE: Chart reviewed and the patient interviewed. Also discussed the patient's condition with the staff and reviewed records and labs. The patient is still confused and he is still disoriented. The patient also still has episodes of irritability and anger with yelling and screaming. Slightly easier to redirect him. He also is still suspicious and is still paranoid. Otherwise, the patient is compliant with taking his medications through the G-tube with no side effects. ASSESSMENT: The patient is still agitated and irritable and needs close monitoring. TREATMENT PLAN: We will continue monitoring his behavior and his condition closely. Also, we will continue to work on his irritability and anger and we will continue to follow up. [facility]# [id number]
--- NOTE | 2017-07-10 08:51 | General Progress Note ---
Subjective - Review of Systems Events since last encounter: confused irritable no signs of pain Objective - Results Result Diagrams: 07/03/17 17:32 07/03/17 17:32 Recent Labs: Laboratory Last Values WBC 11.2 Th/cmm (4.8-10.8) H 07/03/17 17:32 RBC 3.50 Mil/cmm (4.30-5.70) L 07/03/17 17:32 Hgb 11.4 gm/dL (12-16) L 07/03/17 17:32 Hct 33.2 % (41.0-60) L 07/03/17 17:32 MCV 94.8 fl (80-99) 07/03/17 17:32 MCH 32.7 pg (26.0-30.0) H 07/03/17 17:32 MCHC Differential 34.5 pg (28.0-36.0) 07/03/17 17:32 RDW 13.8 % (11.5-20.0) 07/03/17 17:32 Plt Count 262 Th/cmm (150-400) 07/03/17 17:32 MPV 7.3 fl 07/03/17 17:32 Neutrophils % 84.0 % (40.0-80.0) H 07/03/17 17:32 Lymphocytes % 12.6 % (20.0-50.0) L 07/03/17 17:32 Monocytes % 3.0 % (2.0-10.0) 07/03/17 17:32 Eosinophils % 0.4 % (0.0-5.0) 07/03/17 17:32 Basophils % 0.0 % (0.0-2.0) 07/03/17 17:32 Sodium 134 mEq/L (136-145) L 07/03/17 17:32 Potassium 4.3 mEq/L (3.5-5.1) 07/03/17 17:32 Chloride 101 mEq/L (98-107) 07/03/17 17:32 Carbon Dioxide 29.8 mEq/L (21.0-31.0) 07/03/17 17:32 Anion Gap 7.5 (7.0-16.0) 07/03/17 17:32 BUN 10 mg/dL (7-25) 07/03/17 17:32 Creatinine 0.6 mg/dL (0.7-1.3) L 07/03/17 17:32 Est GFR ( Amer) > 60.0 ml/min (>90) 07/03/17 17:32 Est GFR (Non-Af Amer) > 60.0 ml/min 07/03/17 17:32 BUN/Creatinine Ratio 16.7 07/03/17 17:32 Glucose 111 mg/dL (70-105) H 07/03/17 17:32 Hemoglobin A1c % 4.7 % (4.0-6.0) 07/03/17 17:32 Calcium 9.4 mg/dL (8.6-10.3) 07/03/17 17:32 Total Bilirubin 0.5 mg/dL (0.3-1.0) 07/03/17 17:32 AST 17 U/L (13-39) 07/03/17 17:32 ALT 15 U/L (7-52) 07/03/17 17:32 Alkaline Phosphatase 102 U/L (34-104) 07/03/17 17:32 Total Protein 6.7 gm/dL (6.0-8.3) 07/03/17 17:32 Albumin 3.5 gm/dL (4.2-5.5) L 07/03/17 17:32 Globulin 3.2 gm/dL 07/03/17 17:32 Albumin/Globulin Ratio 1.1 (1.0-1.8) 07/03/17 17:32 Triglycerides 66 mg/dL (<150) 07/03/17 17:32 Cholesterol 152 mg/dL (<200) 07/03/17 17:32 LDL Cholesterol Direct 92 mg/dL (75-193) 07/03/17 17:32 HDL Cholesterol 47 mg/dL (23-92) 07/03/17 17:32 TSH 1.44 uIU/ml (0.34-5.60) 07/03/17 17:32 Salicylates < 25.0 mg/L (30.0-100.0) L 07/03/17 17:32 Acetaminophen < 10.0 ug/mL (10.0-30.0) L 07/03/17 17:32 Phenytoin < 2.5 ug/ml (10.0-20.0) L 07/03/17 17:37 Ethyl Alcohol < 10 mg/dL (0-10) 07/03/17 17:32 RPR NONREACTIVE (NONREACTIVE) 07/03/17 17:32 - Physical Exam Vitals and I&O: Vital Signs Temp 97.3 F 07/10/17 05:27 Pulse 78 07/10/17 05:27 Resp 20 07/10/17 05:27 BP 111/73 07/10/17 05:27 Pulse Ox 98 07/10/17 05:27 Intake & Output 07/09/17 07/10/17 07/10/17 18:59 06:59 18:59 Intake Total 250 Balance 250 Intake: Oral 250 Other: # Voids 1 Active Medications: Current Medications Acetaminophen (Tylenol 650mg/20.3ml Suspension) 650 mg GT Q4H PRN PRN Reason: Pain or Fever >101 Stop: 09/02/17 01:28 Acetaminophen (Tylenol 650mg/20.3ml Suspension) 1,000 mg GT Q4H PRN PRN Reason: Pain (Moderate) Stop: 09/02/17 01:27 Acetaminophen/Hydrocodone Bitart (Elbert 5mg/325mg) 1 tab GT Q4H PRN PRN Reason: Pain (Severe) Stop: 09/02/17 01:12 Last Admin: 07/07/17 22:34 Dose: 1 tab Ascorbic Acid (Vitamin C) 500 mg GT DAILY [facility] Stop: 09/02/17 08:59 Last Admin: 07/09/17 09:53 Dose: 500 mg Bandage/Support Products (Hydrogel) 1 appl TP DAILY [facility] Stop: 09/02/17 08:59 Last Admin: 07/09/17 09:53 Dose: 1 appl Bisacodyl (Dulcolax 10 Mg Supp) 10 mg RC DAILY PRN PRN Reason: Constipation Stop: 09/02/17 01:12 Clonazepam (Klonopin) 1 mg GT BID [facility] PRN Reason: Protocol Stop: 09/02/17 08:59 Last Admin: 07/09/17 16:43 Dose: 1 mg Folic Acid (Folate) 1 mg GT DAILY [facility] Stop: 09/02/17 08:59 Last Admin: 07/09/17 09:53 Dose: 1 mg Lacosamide (Vimpat) 100 mg GT BID [facility] Stop: 09/02/17 08:59 Last Admin: 07/09/17 16:43 Dose: 100 mg Lorazepam (Ativan) 1 mg PO Q6HR PRN; Protocol PRN Reason: Agitation Stop: 09/02/17 01:47 Last Admin: 07/07/17 21:36 Dose: 1 mg Magnesium Hydroxide (Milk Of Magnesia) 30 ml GT HS PRN PRN Reason: Constipation Stop: 09/02/17 01:12 Olanzapine (Zyprexa Zydis) 10 mg GT BID [facility] Stop: 09/05/17 16:59 Last Admin: 07/09/17 16:43 Dose: 10 mg Phenytoin (Dilantin) 100 mg GT TID [facility] Stop: 09/02/17 08:59 Last Admin: 07/09/17 21:00 Dose: 100 mg Sodium Phosphate (Fleet Enema) 135 ml RC Q48H PRN PRN Reason: Constipation Stop: 09/02/17 01:12 Thiamine HCl (Vitamin B1) 100 mg GT DAILY [facility] Stop: 09/02/17 08:59 Last Admin: 07/09/17 09:53 Dose: 100 mg Valproate Sodium (Depakene) 500 mg GT TID [facility] PRN Reason: Protocol Stop: 09/02/17 08:59 Last Admin: 07/09/17 21:00 Dose: 500 mg Vitamin A (Vitamin A & D) 5 gm TP DAILY [facility] Stop: 09/02/17 08:59 Last Admin: 07/09/17 09:53 Dose: 5 gm Zinc Sulfate (Zinc Sulfate) 220 mg GT DAILY [facility] Stop: 09/02/17 08:59 Last Admin: 07/09/17 09:53 Dose: 220 mg Zolpidem Tartrate (Ambien) 5 mg PO HS PRN PRN Reason: Insomnia Stop: 09/02/17 01:47 Last Admin: 07/06/17 21:56 Dose: 5 mg Assessment/Plan - Problem List Patient Problems: All Active Problems AGGRESSIVE BEHAVIOR (Acute) Nutritional Asmnt/Malnutr-PDOC - Dietary Evaluation Malnutrition Findings (Please click <Entered> for more info): Nutritional Asmnt/Malnutrition Start: 07/04/17 15: 35 Text: Status: Complete Freq: Document 07/04/17 15:36 CARLIN (Rec: 07/04/17 15:47 LCKELLY [email or web address]) Nutritional Asmnt/Malnutrition Patient General Information Nutritional Screening High Risk Consult Diagnosis psychosis Pertinent Medical Hx/Surgical Hx HTN, dyslipidemia, PUD/GERD, seizures, dementia, schizopphrenia, ecchymosis, PEG-Gtube Subjective Information Consult received for nutrition /supplement. Spoke with RN to use Boost as substitution to Ensure since we carry different brand products. Current Diet Order/ Nutrition Support 2 cans of Ensure bolus feed q6hr Pertinent Medications vit C, folate, vit B1, Vit A&D , zinc Pertinent Labs 07/03 Na 124, Cr 0.6, glucose 111, Alb 3.5 Nutritional Hx/Data Height 1.73 m Height (Calculated Centimeters) 172.7 Current Weight (lbs) 68.039 kg Weight (Calculated Kilograms) 68.0 Weight (Calculated Grams) 62398.9 [place] Body Weight 154 Body Mass Index (BMI) 22.8 Weight Status Approriate GI Symptoms GI Symptoms None Last BM NO RECORD Difficult in: None Skin Integrity/Comment: dryness Estimated Nutritional Goals BEE in Kcals: Using Current wt Calories/Kcals/Kg 25-30 Kcals Calculated 4578-7272 Protein: Using Current wt Protein g/k-1.2 Protein Calculated 68-82 Fluid: ml 1700-2040ml (1ml/kcal) Nutritional Problem No current Nutrition Prob Problem N/A Intervention/Recommendation Comments 1. Current bolus feeding regimen provides 1896 total volume, 1920kcal, 80g protein, 1576ml free water, meeting 100% of nutritional needs. 2. Recommend 50ml water flush q6hr via gtube 3. Monitor wt, labs and skin integrity 4. F/U as moderate risk in 3-5 days, 07/07-07/09 Expected Outcomes/Goals Expected Outcomes/Goals 1. Pt to meet at least 75% of nutritional needs. 2. Wt stability, skin to remain intact, labs to approach WNL.
[2017-07-10] MEDS: Vitamin A/Vitamin D 5 gm Packet TP SCH (09:30)
[2017-07-10] MEDS: OLANZapine 10 mg Oral Disintegrating Tab GT SCH ×2 (09:30→16:30)
[2017-07-10] MEDS: Multivitamin w/ Minerals Tab GT SCH (09:30)
[2017-07-10] MEDS: Hydrogel 3 oz Tube TP SCH (09:31)
--- NOTE | 2017-07-10 09:57 | Progress Notes ---
DATE: SUBJECTIVE: Chart reviewed and the patient interviewed. Also discussed the patient's condition with the staff and reviewed the records and labs. The patient is still disoriented and confused. The patient also is still agitated at times. Also, is restless. Otherwise, the patient is compliant with taking his medications and no side effects of medications. ASSESSMENT: The patient is still confused, but showed some improvement. TREATMENT PLAN: We will continue monitoring his behavior and his condition. Also, continue to work on behavioral modification. Also, we will continue Zyprexa 10 mg twice a day. Also, we will check Depakote blood level. JOB# [id number]
--- NOTE | 2017-07-10 13:48 | Internal Medicine Prog Note ---
Internal Medicine Subjective - Subjective Service Date: 07/10/17 Patient is:: awake Per staff patient has:: tolerating meds Internal Medicine Objective - Results Result Diagrams: 07/03/17 17:32 07/03/17 17:32 Recent Labs: Laboratory Last Values WBC 11.2 Th/cmm (4.8-10.8) H 07/03/17 17:32 RBC 3.50 Mil/cmm (4.30-5.70) L 07/03/17 17:32 Hgb 11.4 gm/dL (12-16) L 07/03/17 17:32 Hct 33.2 % (41.0-60) L 07/03/17 17:32 MCV 94.8 fl (80-99) 07/03/17 17:32 MCH 32.7 pg (26.0-30.0) H 07/03/17 17:32 MCHC Differential 34.5 pg (28.0-36.0) 07/03/17 17:32 RDW 13.8 % (11.5-20.0) 07/03/17 17:32 Plt Count 262 Th/cmm (150-400) 07/03/17 17:32 MPV 7.3 fl 07/03/17 17:32 Neutrophils % 84.0 % (40.0-80.0) H 07/03/17 17:32 Lymphocytes % 12.6 % (20.0-50.0) L 07/03/17 17:32 Monocytes % 3.0 % (2.0-10.0) 07/03/17 17:32 Eosinophils % 0.4 % (0.0-5.0) 07/03/17 17:32 Basophils % 0.0 % (0.0-2.0) 07/03/17 17:32 Sodium 134 mEq/L (136-145) L 07/03/17 17:32 Potassium 4.3 mEq/L (3.5-5.1) 07/03/17 17:32 Chloride 101 mEq/L (98-107) 07/03/17 17:32 Carbon Dioxide 29.8 mEq/L (21.0-31.0) 07/03/17 17:32 Anion Gap 7.5 (7.0-16.0) 07/03/17 17:32 BUN 10 mg/dL (7-25) 07/03/17 17:32 Creatinine 0.6 mg/dL (0.7-1.3) L 07/03/17 17:32 Est GFR ( Amer) > 60.0 ml/min (>90) 07/03/17 17:32 Est GFR (Non-Af Amer) > 60.0 ml/min 07/03/17 17:32 BUN/Creatinine Ratio 16.7 07/03/17 17:32 Glucose 111 mg/dL (70-105) H 07/03/17 17:32 Hemoglobin A1c % 4.7 % (4.0-6.0) 07/03/17 17:32 Calcium 9.4 mg/dL (8.6-10.3) 07/03/17 17:32 Total Bilirubin 0.5 mg/dL (0.3-1.0) 07/03/17 17:32 AST 17 U/L (13-39) 07/03/17 17:32 ALT 15 U/L (7-52) 07/03/17 17:32 Alkaline Phosphatase 102 U/L (34-104) 07/03/17 17:32 Total Protein 6.7 gm/dL (6.0-8.3) 07/03/17 17:32 Albumin 3.5 gm/dL (4.2-5.5) L 07/03/17 17:32 Globulin 3.2 gm/dL 07/03/17 17:32 Albumin/Globulin Ratio 1.1 (1.0-1.8) 07/03/17 17:32 Triglycerides 66 mg/dL (<150) 07/03/17 17:32 Cholesterol 152 mg/dL (<200) 07/03/17 17:32 LDL Cholesterol Direct 92 mg/dL (75-193) 07/03/17 17:32 HDL Cholesterol 47 mg/dL (23-92) 07/03/17 17:32 TSH 1.44 uIU/ml (0.34-5.60) 07/03/17 17:32 Salicylates < 25.0 mg/L (30.0-100.0) L 07/03/17 17:32 Acetaminophen < 10.0 ug/mL (10.0-30.0) L 07/03/17 17:32 Phenytoin < 2.5 ug/ml (10.0-20.0) L 07/03/17 17:37 Valproic Acid 66.0 ug/mL (50.0-100.0) 07/10/17 08:15 Ethyl Alcohol < 10 mg/dL (0-10) 07/03/17 17:32 RPR NONREACTIVE (NONREACTIVE) 07/03/17 17:32 - Physical Exam Vitals and I&O: Vital Signs Temp 97.3 F 07/10/17 05:27 Pulse 78 07/10/17 05:27 Resp 20 07/10/17 05:27 BP 111/73 07/10/17 05:27 Pulse Ox 98 07/10/17 05:27 Intake & Output 07/09/17 07/10/17 07/10/17 18:59 06:59 18:59 Intake Total 250 Balance 250 Intake: Oral 250 Other: # Voids 1 Active Medications: Current Medications Acetaminophen (Tylenol 650mg/20.3ml Suspension) 650 mg GT Q4H PRN PRN Reason: Pain or Fever >101 Stop: 09/02/17 01:28 Acetaminophen (Tylenol 650mg/20.3ml Suspension) 1,000 mg GT Q4H PRN PRN Reason: Pain (Moderate) Stop: 09/02/17 01:27 Acetaminophen/Hydrocodone Bitart (Louin 5mg/325mg) 1 tab GT Q4H PRN PRN Reason: Pain (Severe) Stop: 09/02/17 01:12 Last Admin: 07/07/17 22:34 Dose: 1 tab Ascorbic Acid (Vitamin C) 500 mg GT DAILY [facility] Stop: 09/02/17 08:59 Last Admin: 07/10/17 09:36 Dose: 500 mg Bandage/Support Products (Hydrogel) 1 appl TP DAILY [facility] Stop: 09/02/17 08:59 Last Admin: 07/10/17 09:31 Dose: 1 appl Bisacodyl (Dulcolax 10 Mg Supp) 10 mg RC DAILY PRN PRN Reason: Constipation Stop: 09/02/17 01:12 Clonazepam (Klonopin) 1 mg GT BID [facility] PRN Reason: Protocol Stop: 09/02/17 08:59 Last Admin: 07/10/17 09:30 Dose: 1 mg Folic Acid (Folate) 1 mg GT DAILY [facility] Stop: 09/02/17 08:59 Last Admin: 07/10/17 09:30 Dose: 1 mg Lacosamide (Vimpat) 100 mg GT BID [facility] Stop: 09/02/17 08:59 Last Admin: 07/10/17 09:30 Dose: 100 mg Lorazepam (Ativan) 1 mg PO Q6HR PRN; Protocol PRN Reason: Agitation Stop: 09/02/17 01:47 Last Admin: 07/07/17 21:36 Dose: 1 mg Magnesium Hydroxide (Milk Of Magnesia) 30 ml GT HS PRN PRN Reason: Constipation Stop: 09/02/17 01:12 Olanzapine (Zyprexa Zydis) 10 mg GT BID [facility] Stop: 09/05/17 16:59 Last Admin: 07/10/17 09:30 Dose: 10 mg Phenytoin (Dilantin) 100 mg GT TID [facility] Stop: 09/02/17 08:59 Last Admin: 07/10/17 13:24 Dose: 100 mg Sodium Phosphate (Fleet Enema) 135 ml RC Q48H PRN PRN Reason: Constipation Stop: 09/02/17 01:12 Thiamine HCl (Vitamin B1) 100 mg GT DAILY [facility] Stop: 09/02/17 08:59 Last Admin: 07/10/17 09:30 Dose: 100 mg Valproate Sodium (Depakene) 500 mg GT TID [facility] PRN Reason: Protocol Stop: 09/02/17 08:59 Last Admin: 07/10/17 13:24 Dose: 500 mg Vitamin A (Vitamin A & D) 5 gm TP DAILY [facility] Stop: 09/02/17 08:59 Last Admin: 07/10/17 09:30 Dose: 5 gm Zinc Sulfate (Zinc Sulfate) 220 mg GT DAILY [facility] Stop: 09/02/17 08:59 Last Admin: 07/10/17 09:30 Dose: 220 mg Zolpidem Tartrate (Ambien) 5 mg PO HS PRN PRN Reason: Insomnia Stop: 09/02/17 01:47 Last Admin: 07/06/17 21:56 Dose: 5 mg General: alert HEENT: NC/AT, PERRLA Neck: Supple Lungs: CTAB Cardiovascular: RRR, Normal S1, Normal S2, without murmur Abdomen: soft, non-tender, non-distended, positive bowel sound Neurological: unable to follow command Internal Medicine Assmt/Plan - Assessment Assessment: Current Active Problems Problem Status Onset AGGRESSIVE BEHAVIOR Acute HTN Dyslipidemia Seizures Dementia schizophrenia - Plan Plan: seizure precautions fall precautions continue current orders Nutritional Asmnt/Malnutr-PDOC - Dietary Evaluation Malnutrition Findings (Please click <Entered> for more info): Nutritional Asmnt/Malnutrition Start: 07/04/17 15: 35 Text: Status: Complete Freq: Document 07/04/17 15:36 LCHENNYG (Rec: 07/04/17 15:47 LCHENG JENNIFER-[email or web address]) Nutritional Asmnt/Malnutrition Patient General Information Nutritional Screening High Risk Consult Diagnosis psychosis Pertinent Medical Hx/Surgical Hx HTN, dyslipidemia, PUD/GERD, seizures, dementia, schizopphrenia, ecchymosis, PEG-Gtube Subjective Information Consult received for nutrition /supplement. Spoke with RN to use Boost as substitution to Ensure since we carry different brand products. Current Diet Order/ Nutrition Support 2 cans of Ensure bolus feed q6hr Pertinent Medications vit C, folate, vit B1, Vit A&D , zinc Pertinent Labs 07/03 Na 124, Cr 0.6, glucose 111, Alb 3.5 Nutritional Hx/Data Height 5 ft 8 in Height (Calculated Centimeters) 172.7 Current Weight (lbs) 150 lb Weight (Calculated Kilograms) 68.0 Weight (Calculated Grams) 47172.9 [place] Body Weight 154 Body Mass Index (BMI) 22.8 Weight Status Approriate GI Symptoms GI Symptoms None Last BM NO RECORD Difficult in: None Skin Integrity/Comment: dryness Estimated Nutritional Goals BEE in Kcals: Using Current wt Calories/Kcals/Kg 25-30 Kcals Calculated 1962-6367 Protein: Using Current wt Protein g/k-1.2 Protein Calculated 68-82 Fluid: ml 1700-2040ml (1ml/kcal) Nutritional Problem No current Nutrition Prob Problem N/A Intervention/Recommendation Comments 1. Current bolus feeding regimen provides 1896 total volume, 1920kcal, 80g protein, 1576ml free water, meeting 100% of nutritional needs. 2. Recommend 50ml water flush q6hr via gtube 3. Monitor wt, labs and skin integrity 4. F/U as moderate risk in 3-5 days, 07/07-07/09 Expected Outcomes/Goals Expected Outcomes/Goals 1. Pt to meet at least 75% of nutritional needs. 2. Wt stability, skin to remain intact, labs to approach WNL.
[2017-07-11] MEDS: Vitamin A/Vitamin D 5 gm Packet TP SCH (09:55)
[2017-07-11] MEDS: OLANZapine 10 mg Oral Disintegrating Tab GT SCH ×2 (09:55→18:13)
[2017-07-11] MEDS: Multivitamin w/ Minerals Tab GT SCH (09:55)
--- NOTE | 2017-07-11 11:00 | Progress Notes ---
DATE: SUBJECTIVE: Chart reviewed and the patient interviewed. Also discussed the patient's condition with the staff and reviewed records and labs. The patient is still confused and agitated. The patient also is combative with the staff, especially during helping him with his ADLs. The patient also is restless and easily agitated. Otherwise, the patient has no side effects of medications. ASSESSMENT: The patient is still psychotic and agitated. TREATMENT PLAN: Continue to monitor his behavior and his condition closely. Also, continue to work on modification as well as working with keycase assembler on discharge plans. JOB# [id number]
[2017-07-11] MEDS: Hydrogel 3 oz Tube TP SCH (18:14)
[2017-07-12] MEDS: OLANZapine 10 mg Oral Disintegrating Tab GT SCH ×2 (08:23→16:57)
[2017-07-12] MEDS: Multivitamin w/ Minerals Tab GT SCH (08:23)
[2017-07-12] MEDS: Vitamin A/Vitamin D 5 gm Packet TP SCH (09:22)
[2017-07-12] MEDS: Hydrogel 3 oz Tube TP SCH (10:00)
--- NOTE | 2017-07-12 11:02 | Progress Notes ---
DATE: 07/12/2017 SUBJECTIVE: The patient was seen in hallway sitting in a Lesvia chair. The patient appears to be irritated and guarded. The patient is in no acute distress. OBJECTIVE: VITAL SIGNS: Temperature 98.6, heart rate 93, blood pressure 134/68, respiration of 19, and 98% on room air. HEENT: Head is atraumatic and normocephalic. Eyes: Bilateral conjunctivae are clear. Bilateral pupils equal, round, and reactive. NECK: Supple. No JVD. CARDIOVASCULAR: S1 and S2, without murmur. PULMONARY: Clear to auscultation. GASTROINTESTINAL: Soft and nontender without guarding. Positive bowel sounds. MUSCULOSKELETAL: No clubbing. No cyanosis noted. ASSESSMENT: 1. Dementia. 2. Schizophrenia. 3. Seizure. 4. Hyperlipidemia. 5. Hypertension. PLAN: We will keep the patient inpatient in Mental Health Unit. Will follow up with a psychiatrist to monitor the patient's condition and behavior. Put the patient on seizure and fall precaution. Treatment plans were discussed with the patient's nurse. Treatment plans were discussed with Dr. Mccormack. JOB# [id number]
--- NOTE | 2017-07-12 22:42 | Progress Notes ---
DATE: 07/12/[address] Rosa. Case was discussed with staff of the patient, reviewed records. This is a 57-year-old male, who was admitted to [place] [id number]. The patient is still very confused and agitated, combative with the staff. Unable to carry on a conversation and make safe plan for self-care. The staff have to help him with his ADLs. He is restless, easily agitated. He continues to be psychotic and agitated. He is compliant with the medication with no side effects. No sedation, no nausea, and no extrapyramidal symptoms. He is on Dilantin for his seizure disorder 100 mg 3 times a day and Depakote 500 mg 3 times a day. He has a nasogastric tube. He is also on Zyprexa 10 mg twice a day, clonazepam 1 mg twice a day with no side effects, no sedation, no nausea, no extrapyramidal symptoms. We will continue to work with the patient in group therapy, milieu therapy, and adjust the medication as needed. JOB# [id number]
[2017-07-13] MEDS: Multivitamin w/ Minerals Tab GT SCH (08:52)
[2017-07-13] MEDS: OLANZapine 10 mg Oral Disintegrating Tab GT SCH ×2 (08:52→17:12)
[2017-07-13] MEDS: Vitamin A/Vitamin D 5 gm Packet TP SCH (08:52)
[2017-07-13] MEDS: Hydrogel 3 oz Tube TP SCH (08:54)
--- NOTE | 2017-07-13 09:08 | General Progress Note ---
Subjective - Review of Systems Events since last encounter: patient still confused and agitated Objective - Results Result Diagrams: 07/03/17 17:32 07/03/17 17:32 Recent Labs: Laboratory Last Values WBC 11.2 Th/cmm (4.8-10.8) H 07/03/17 17:32 RBC 3.50 Mil/cmm (4.30-5.70) L 07/03/17 17:32 Hgb 11.4 gm/dL (12-16) L 07/03/17 17:32 Hct 33.2 % (41.0-60) L 07/03/17 17:32 MCV 94.8 fl (80-99) 07/03/17 17:32 MCH 32.7 pg (26.0-30.0) H 07/03/17 17:32 MCHC Differential 34.5 pg (28.0-36.0) 07/03/17 17:32 RDW 13.8 % (11.5-20.0) 07/03/17 17:32 Plt Count 262 Th/cmm (150-400) 07/03/17 17:32 MPV 7.3 fl 07/03/17 17:32 Neutrophils % 84.0 % (40.0-80.0) H 07/03/17 17:32 Lymphocytes % 12.6 % (20.0-50.0) L 07/03/17 17:32 Monocytes % 3.0 % (2.0-10.0) 07/03/17 17:32 Eosinophils % 0.4 % (0.0-5.0) 07/03/17 17:32 Basophils % 0.0 % (0.0-2.0) 07/03/17 17:32 Sodium 134 mEq/L (136-145) L 07/03/17 17:32 Potassium 4.3 mEq/L (3.5-5.1) 07/03/17 17:32 Chloride 101 mEq/L (98-107) 07/03/17 17:32 Carbon Dioxide 29.8 mEq/L (21.0-31.0) 07/03/17 17:32 Anion Gap 7.5 (7.0-16.0) 07/03/17 17:32 BUN 10 mg/dL (7-25) 07/03/17 17:32 Creatinine 0.6 mg/dL (0.7-1.3) L 07/03/17 17:32 Est GFR ( Amer) > 60.0 ml/min (>90) 07/03/17 17:32 Est GFR (Non-Af Amer) > 60.0 ml/min 07/03/17 17:32 BUN/Creatinine Ratio 16.7 07/03/17 17:32 Glucose 111 mg/dL (70-105) H 07/03/17 17:32 Hemoglobin A1c % 4.7 % (4.0-6.0) 07/03/17 17:32 Calcium 9.4 mg/dL (8.6-10.3) 07/03/17 17:32 Total Bilirubin 0.5 mg/dL (0.3-1.0) 07/03/17 17:32 AST 17 U/L (13-39) 07/03/17 17:32 ALT 15 U/L (7-52) 07/03/17 17:32 Alkaline Phosphatase 102 U/L (34-104) 07/03/17 17:32 Total Protein 6.7 gm/dL (6.0-8.3) 07/03/17 17:32 Albumin 3.5 gm/dL (4.2-5.5) L 07/03/17 17:32 Globulin 3.2 gm/dL 07/03/17 17:32 Albumin/Globulin Ratio 1.1 (1.0-1.8) 07/03/17 17:32 Triglycerides 66 mg/dL (<150) 07/03/17 17:32 Cholesterol 152 mg/dL (<200) 07/03/17 17:32 LDL Cholesterol Direct 92 mg/dL (75-193) 07/03/17 17:32 HDL Cholesterol 47 mg/dL (23-92) 07/03/17 17:32 TSH 1.44 uIU/ml (0.34-5.60) 07/03/17 17:32 Salicylates < 25.0 mg/L (30.0-100.0) L 07/03/17 17:32 Acetaminophen < 10.0 ug/mL (10.0-30.0) L 07/03/17 17:32 Phenytoin < 2.5 ug/ml (10.0-20.0) L 07/03/17 17:37 Valproic Acid 66.0 ug/mL (50.0-100.0) 07/10/17 08:15 Ethyl Alcohol < 10 mg/dL (0-10) 07/03/17 17:32 RPR NONREACTIVE (NONREACTIVE) 07/03/17 17:32 - Physical Exam Vitals and I&O: Vital Signs Temp 99.7 F 07/13/17 07:13 Pulse 105 07/13/17 07:13 Resp 18 07/13/17 07:13 BP 133/89 07/13/17 07:13 Pulse Ox 96 07/13/17 07:13 Intake & Output 07/12/17 07/13/17 07/13/17 18:59 06:59 18:59 Other: # Voids 4 # Bowel Movements 2 Active Medications: Current Medications Acetaminophen (Tylenol 650mg/20.3ml Suspension) 650 mg GT Q4H PRN PRN Reason: Pain or Fever >101 Stop: 09/02/17 01:28 Acetaminophen (Tylenol 650mg/20.3ml Suspension) 1,000 mg GT Q4H PRN PRN Reason: Pain (Moderate) Stop: 09/02/17 01:27 Last Admin: 07/13/17 06:32 Dose: 1,000 mg Ascorbic Acid (Vitamin C) 500 mg GT DAILY [facility] Stop: 09/02/17 08:59 Last Admin: 07/13/17 08:52 Dose: 500 mg Bandage/Support Products (Hydrogel) 1 appl TP DAILY [facility] Stop: 09/02/17 08:59 Last Admin: 07/13/17 08:54 Dose: 1 appl Bisacodyl (Dulcolax 10 Mg Supp) 10 mg RC DAILY PRN PRN Reason: Constipation Stop: 09/02/17 01:12 Folic Acid (Folate) 1 mg GT DAILY [facility] Stop: 09/02/17 08:59 Last Admin: 07/13/17 08:52 Dose: 1 mg Lacosamide (Vimpat) 100 mg GT BID [facility] Stop: 09/02/17 08:59 Last Admin: 07/13/17 08:52 Dose: 100 mg Magnesium Hydroxide (Milk Of Magnesia) 30 ml GT HS PRN PRN Reason: Constipation Stop: 09/02/17 01:12 Olanzapine (Zyprexa Zydis) 10 mg GT BID [facility] Stop: 09/05/17 16:59 Last Admin: 07/13/17 08:52 Dose: 10 mg Phenytoin (Dilantin) 100 mg GT TID [facility] Stop: 09/02/17 08:59 Last Admin: 07/13/17 08:52 Dose: 100 mg Sodium Phosphate (Fleet Enema) 135 ml RC Q48H PRN PRN Reason: Constipation Stop: 09/02/17 01:12 Thiamine HCl (Vitamin B1) 100 mg GT DAILY [facility] Stop: 09/02/17 08:59 Last Admin: 07/13/17 08:52 Dose: 100 mg Valproate Sodium (Depakene) 500 mg GT TID [facility] PRN Reason: Protocol Stop: 09/02/17 08:59 Last Admin: 07/13/17 08:52 Dose: 500 mg Vitamin A (Vitamin A & D) 5 gm TP DAILY [facility] Stop: 09/02/17 08:59 Last Admin: 07/13/17 08:52 Dose: 5 gm Zinc Sulfate (Zinc Sulfate) 220 mg GT DAILY [facility] Stop: 09/02/17 08:59 Last Admin: 07/13/17 08:52 Dose: 220 mg Assessment/Plan - Problem List Patient Problems: All Active Problems AGGRESSIVE BEHAVIOR (Acute) Nutritional Asmnt/Malnutr-PDOC - Dietary Evaluation Malnutrition Findings (Please click <Entered> for more info): Nutritional Asmnt/Malnutrition Start: 07/04/17 15: 35 Text: Status: Complete Freq: Document 07/04/17 15:36 LCHENG (Rec: 07/04/17 15:47 [email or web address] Nutritional Asmnt/Malnutrition Patient General Information Nutritional Screening High Risk Consult Diagnosis psychosis Pertinent Medical Hx/Surgical Hx HTN, dyslipidemia, PUD/GERD, seizures, dementia, schizopphrenia, ecchymosis, PEG-Gtube Subjective Information Consult received for nutrition /supplement. Spoke with RN to use Boost as substitution to Ensure since we carry different brand products. Current Diet Order/ Nutrition Support 2 cans of Ensure bolus feed q6hr Pertinent Medications vit C, folate, vit B1, Vit A&D , zinc Pertinent Labs 07/03 Na 124, Cr 0.6, glucose 111, Alb 3.5 Nutritional Hx/Data Height 1.73 m Height (Calculated Centimeters) 172.7 Current Weight (lbs) 68.039 kg Weight (Calculated Kilograms) 68.0 Weight (Calculated Grams) 37832.9 [place] Body Weight 154 Body Mass Index (BMI) 22.8 Weight Status Approriate GI Symptoms GI Symptoms None Last BM NO RECORD Difficult in: None Skin Integrity/Comment: dryness Estimated Nutritional Goals BEE in Kcals: Using Current wt Calories/Kcals/Kg 25-30 Kcals Calculated 1264-1419 Protein: Using Current wt Protein g/k-1.2 Protein Calculated 68-82 Fluid: ml 1700-2040ml (1ml/kcal) Nutritional Problem No current Nutrition Prob Problem N/A Intervention/Recommendation Comments 1. Current bolus feeding regimen provides 1896 total volume, 1920kcal, 80g protein, 1576ml free water, meeting 100% of nutritional needs. 2. Recommend 50ml water flush q6hr via gtube 3. Monitor wt, labs and skin integrity 4. F/U as moderate risk in 3-5 days, 07/07-07/09 Expected Outcomes/Goals Expected Outcomes/Goals 1. Pt to meet at least 75% of nutritional needs. 2. Wt stability, skin to remain intact, labs to approach WNL.
--- NOTE | 2017-07-14 02:37 | Progress Notes ---
DATE: 07/13/2017 Case was discussed with staff of the patient, reviewed records. Covering for Dr. Rosa. The patient continues to be confused, demented. Continues to be unable to participate in meaningful conversation or make safe plan for self-care, though he is talking. He is on Zyprexa 10 mg twice a day through the G-tube with no side effect. ____ also on valproic acid 500 mg 3 times a day. I will continue patient in group therapy, milieu therapy and adjust medications. JOB# [id number]
[2017-07-14] MEDS: Multivitamin w/ Minerals Tab GT SCH (09:46)
[2017-07-14] MEDS: OLANZapine 10 mg Oral Disintegrating Tab GT SCH (09:46)
[2017-07-14] MEDS: Hydrogel 3 oz Tube TP SCH (09:47)
[2017-07-14] MEDS: Vitamin A/Vitamin D 5 gm Packet TP SCH (09:47)
--- NOTE | 2017-07-14 11:31 | General Progress Note ---
Subjective - Review of Systems Events since last encounter: patient confused demented Objective - Results Result Diagrams: 07/03/17 17:32 07/03/17 17:32 Recent Labs: Laboratory Last Values WBC 11.2 Th/cmm (4.8-10.8) H 07/03/17 17:32 RBC 3.50 Mil/cmm (4.30-5.70) L 07/03/17 17:32 Hgb 11.4 gm/dL (12-16) L 07/03/17 17:32 Hct 33.2 % (41.0-60) L 07/03/17 17:32 MCV 94.8 fl (80-99) 07/03/17 17:32 MCH 32.7 pg (26.0-30.0) H 07/03/17 17:32 MCHC Differential 34.5 pg (28.0-36.0) 07/03/17 17:32 RDW 13.8 % (11.5-20.0) 07/03/17 17:32 Plt Count 262 Th/cmm (150-400) 07/03/17 17:32 MPV 7.3 fl 07/03/17 17:32 Neutrophils % 84.0 % (40.0-80.0) H 07/03/17 17:32 Lymphocytes % 12.6 % (20.0-50.0) L 07/03/17 17:32 Monocytes % 3.0 % (2.0-10.0) 07/03/17 17:32 Eosinophils % 0.4 % (0.0-5.0) 07/03/17 17:32 Basophils % 0.0 % (0.0-2.0) 07/03/17 17:32 Sodium 134 mEq/L (136-145) L 07/03/17 17:32 Potassium 4.3 mEq/L (3.5-5.1) 07/03/17 17:32 Chloride 101 mEq/L (98-107) 07/03/17 17:32 Carbon Dioxide 29.8 mEq/L (21.0-31.0) 07/03/17 17:32 Anion Gap 7.5 (7.0-16.0) 07/03/17 17:32 BUN 10 mg/dL (7-25) 07/03/17 17:32 Creatinine 0.6 mg/dL (0.7-1.3) L 07/03/17 17:32 Est GFR ( Amer) > 60.0 ml/min (>90) 07/03/17 17:32 Est GFR (Non-Af Amer) > 60.0 ml/min 07/03/17 17:32 BUN/Creatinine Ratio 16.7 07/03/17 17:32 Glucose 111 mg/dL (70-105) H 07/03/17 17:32 Hemoglobin A1c % 4.7 % (4.0-6.0) 07/03/17 17:32 Calcium 9.4 mg/dL (8.6-10.3) 07/03/17 17:32 Total Bilirubin 0.5 mg/dL (0.3-1.0) 07/03/17 17:32 AST 17 U/L (13-39) 07/03/17 17:32 ALT 15 U/L (7-52) 07/03/17 17:32 Alkaline Phosphatase 102 U/L (34-104) 07/03/17 17:32 Total Protein 6.7 gm/dL (6.0-8.3) 07/03/17 17:32 Albumin 3.5 gm/dL (4.2-5.5) L 07/03/17 17:32 Globulin 3.2 gm/dL 07/03/17 17:32 Albumin/Globulin Ratio 1.1 (1.0-1.8) 07/03/17 17:32 Triglycerides 66 mg/dL (<150) 07/03/17 17:32 Cholesterol 152 mg/dL (<200) 07/03/17 17:32 LDL Cholesterol Direct 92 mg/dL (75-193) 07/03/17 17:32 HDL Cholesterol 47 mg/dL (23-92) 07/03/17 17:32 TSH 1.44 uIU/ml (0.34-5.60) 07/03/17 17:32 Salicylates < 25.0 mg/L (30.0-100.0) L 07/03/17 17:32 Acetaminophen < 10.0 ug/mL (10.0-30.0) L 07/03/17 17:32 Phenytoin < 2.5 ug/ml (10.0-20.0) L 07/03/17 17:37 Valproic Acid 66.0 ug/mL (50.0-100.0) 07/10/17 08:15 Ethyl Alcohol < 10 mg/dL (0-10) 07/03/17 17:32 RPR NONREACTIVE (NONREACTIVE) 07/03/17 17:32 - Physical Exam Vitals and I&O: Vital Signs Temp 97.5 F 07/14/17 05:28 Pulse 89 07/14/17 05:28 Resp 18 07/14/17 05:28 BP 119/77 07/14/17 05:28 Pulse Ox 99 07/14/17 05:28 Intake & Output 07/13/17 07/14/17 07/14/17 18:59 06:59 18:59 Other: # Bowel Movements 1 Active Medications: Current Medications Acetaminophen (Tylenol 650mg/20.3ml Suspension) 650 mg GT Q4H PRN PRN Reason: Pain or Fever >101 Stop: 09/02/17 01:28 Acetaminophen (Tylenol 650mg/20.3ml Suspension) 1,000 mg GT Q4H PRN PRN Reason: Pain (Moderate) Stop: 09/02/17 01:27 Last Admin: 07/13/17 14:11 Dose: 1,000 mg Ascorbic Acid (Vitamin C) 500 mg GT DAILY [facility] Stop: 09/02/17 08:59 Last Admin: 07/14/17 09:46 Dose: 500 mg Bandage/Support Products (Hydrogel) 1 appl TP DAILY [facility] Stop: 09/02/17 08:59 Last Admin: 07/14/17 09:47 Dose: 1 appl Bisacodyl (Dulcolax 10 Mg Supp) 10 mg RC DAILY PRN PRN Reason: Constipation Stop: 09/02/17 01:12 Folic Acid (Folate) 1 mg GT DAILY [facility] Stop: 09/02/17 08:59 Last Admin: 07/14/17 09:46 Dose: 1 mg Lacosamide (Vimpat) 100 mg GT BID [facility] Stop: 09/02/17 08:59 Last Admin: 07/14/17 09:46 Dose: 100 mg Lorazepam (Ativan) 0.5 mg GT Q6HR PRN; Protocol PRN Reason: Anxiety Stop: 09/11/17 22:12 Last Admin: 07/13/17 22:56 Dose: 0.5 mg Magnesium Hydroxide (Milk Of Magnesia) 30 ml GT HS PRN PRN Reason: Constipation Stop: 09/02/17 01:12 Olanzapine (Zyprexa Zydis) 10 mg GT BID [facility] Stop: 09/05/17 16:59 Last Admin: 07/14/17 09:46 Dose: 10 mg Phenytoin (Dilantin) 100 mg GT TID [facility] Stop: 09/02/17 08:59 Last Admin: 07/14/17 09:46 Dose: 100 mg Sodium Phosphate (Fleet Enema) 135 ml RC Q48H PRN PRN Reason: Constipation Stop: 09/02/17 01:12 Thiamine HCl (Vitamin B1) 100 mg GT DAILY [facility] Stop: 09/02/17 08:59 Last Admin: 07/14/17 09:46 Dose: 100 mg Valproate Sodium (Depakene) 500 mg GT TID [facility] PRN Reason: Protocol Stop: 09/02/17 08:59 Last Admin: 07/14/17 09:46 Dose: 500 mg Vitamin A (Vitamin A & D) 5 gm TP DAILY [facility] Stop: 09/02/17 08:59 Last Admin: 07/14/17 09:47 Dose: 5 gm Zinc Sulfate (Zinc Sulfate) 220 mg GT DAILY [facility] Stop: 09/02/17 08:59 Last Admin: 07/14/17 09:47 Dose: 220 mg Assessment/Plan - Problem List Patient Problems: All Active Problems AGGRESSIVE BEHAVIOR (Acute) Nutritional Asmnt/Malnutr-PDOC - Dietary Evaluation Malnutrition Findings (Please click <Entered> for more info): Nutritional Asmnt/Malnutrition Start: 07/04/17 15: 35 Text: Status: Complete Freq: Document 07/04/17 15:36 LCHENG (Rec: 07/04/17 15:47 LCHENG [email or web address]) Nutritional Asmnt/Malnutrition Patient General Information Nutritional Screening High Risk Consult Diagnosis psychosis Pertinent Medical Hx/Surgical Hx HTN, dyslipidemia, PUD/GERD, seizures, dementia, schizopphrenia, ecchymosis, PEG-Gtube Subjective Information Consult received for nutrition /supplement. Spoke with RN to use Boost as substitution to Ensure since we carry different brand products. Current Diet Order/ Nutrition Support 2 cans of Ensure bolus feed q6hr Pertinent Medications vit C, folate, vit B1, Vit A&D , zinc Pertinent Labs 07/03 Na 124, Cr 0.6, glucose 111, Alb 3.5 Nutritional Hx/Data Height 1.73 m Height (Calculated Centimeters) 172.7 Current Weight (lbs) 68.039 kg Weight (Calculated Kilograms) 68.0 Weight (Calculated Grams) 16202.9 [place] Body Weight 154 Body Mass Index (BMI) 22.8 Weight Status Approriate GI Symptoms GI Symptoms None Last BM NO RECORD Difficult in: None Skin Integrity/Comment: dryness Estimated Nutritional Goals BEE in Kcals: Using Current wt Calories/Kcals/Kg 25-30 Kcals Calculated 2518-0647 Protein: Using Current wt Protein g/k-1.2 Protein Calculated 68-82 Fluid: ml 1700-2040ml (1ml/kcal) Nutritional Problem No current Nutrition Prob Problem N/A Intervention/Recommendation Comments 1. Current bolus feeding regimen provides 1896 total volume, 1920kcal, 80g protein, 1576ml free water, meeting 100% of nutritional needs. 2. Recommend 50ml water flush q6hr via gtube 3. Monitor wt, labs and skin integrity 4. F/U as moderate risk in 3-5 days, 07/07-07/09 Expected Outcomes/Goals Expected Outcomes/Goals 1. Pt to meet at least 75% of nutritional needs. 2. Wt stability, skin to remain intact, labs to approach WNL.
--- NOTE | 2017-07-14 12:56 | Discharge Summary ---
DATE OF DISCHARGE: 07/14/2017 AGE: 57. SEX: Male. FINAL DIAGNOSIS/PRIMARY DIAGNOSIS: Unspecified psychosis. SECONDARY DIAGNOSIS: Dementia, moderate to severe, with psychotic features. REASON FOR HOSPITALIZATION: The patient was admitted to the hospital because of increased agitation and irritability and aggressive behavior in [facility] where he lives. HOSPITAL COURSE: The patient continued to be agitated and in irritable mood. Medication adjustment was done and patient was in the beginning still gets agitated and Seroquel dose adjusted. Later on, the patient became calmer and was less irritable. Also, was compliant with taking his medications with no side effects of medications. Physical exam of the patient showed no major medical problems while in the hospital. AFTER DISCHARGE PLANS: The patient discharged from the hospital with plans to follow up in [facility]. LABORATORY DATA: No major abnormal labs. EXPECTED OUTCOME AFTER DISCHARGE: Fair if the patient continued to take his psychotropic medications and follow up with discharge plans. [facility]# [id number]
--- NOTE | 2017-07-16 00:52 | Progress Notes ---
DATE: 07/06/2017 SUBJECTIVE: Chart reviewed and the patient interviewed. Also discussed the patient's condition with the staff and reviewed records and labs. The patient is still having episodes of aggression and still wants to harm others and tried to strike out at staff, especially when helping him with his ADLs. The patient also still seems to be responding to stimuli. On the other hand, the patient continued to comply with taking Klonopin and Zyprexa with no side effects. ASSESSMENT: The patient is still psychotic and need close monitoring. TREATMENT PLAN: Continue to monitor his behavior and his condition closely and continue to work on his unpredictable behavior and agitation. JOB# [id number]
== END 2017-07-14 13:15 | DRG 885 ==
LOC: ER 16:56 → GERO2 20:49
PROVIDERS: ADMIT Psychiatry & Neurology Psychiatry; ATTEND Psychiatry & Neurology Psychiatry
DX: F25.0 Schizoaffective disorder, bipolar type (principal); F03.91 Unspecified dementia, unspecified severity, with behavioral disturbance; G40.909 Epilepsy, unspecified, not intractable, without status epilepticus; E78.5 Hyperlipidemia, unspecified; I10 Essential (primary) hypertension; K21.9 Gastro-esophageal reflux disease without esophagitis; Z87.11 Personal history of peptic ulcer disease; Z79.899 Other long term (current) drug therapy
CPT/HCPCS: 36415-UA; 80053-TC; 80061-TC; 80164-TC; 80185-TC; 80320-TC; 80329-TC; 83036-90; 84443-TC; 85025-TC; 86592-TC; 93005; 97530; X3904; Z7610